=== PATIENT | female | born 1940 | race Caucasian/White ===

== ENCOUNTER 2022-01-01 11:19 | Inpatient (IN) ==
--- NOTE | 2022-01-01 11:56 | Emergency Department Note ---
SOB HPI General Chief Complaint: Shortness of Breath/Dyspnea Stated Complaint: SOB, hypoxia Time Seen by Provider: 01/01/22 11:36 Source: patient and family Mode of arrival: wheelchair Limitations: no limitations History of Present Illness HPI Narrative: Patient is an 81-year-old lady who arrives emergency private vehicle complaining of shortness of breath. History is provided by the patient with some supplement al information from her granddaughter who has accompanied her to the emergency department. The patient has been feeling more short of breath than usual over the past 2 or 3 days. This was gradual in onset and has been progressively worsening. Family members have noticed that her oxygen saturation has been in the low 80s and high 70s on her home 2 L of oxygen via nasal cannula. They were concerned that her increased oxygen requirement so they brought her to the emergency department for further evaluation. She has chronic edema in bilateral lower extremities and this is actually been in she notes that she has not urinated at all today which is unusual for her. She denies any shortness of breath, fever or cough. Related Data Home Medications Medication Instructions Recorded Confirmed omega-3 fatty acids 1,000 mg 1,000 mg PO QDAY cap 05/08/15 01/01/22 capsule timolol 0.25 % eye drops 1 drp OPHTHALMIC BID ml 05/08/15 01/01/22 calcium carbonate 600 mg-vitamin 1 cap PO DAILY cap 10/09/15 01/01/22 D3 10 mcg (400 unit) capsule ibuprofen 200 mg capsule 200 mg PO Q6H cap 12/28/16 01/01/22 latanoprost 0.005 % eye drops 1 drp OPHTHALMIC BID 12/28/16 01/01/22 amlodipine 10 mg tablet (Norvasc) 10 mg PO HS 01/01/22 01/01/22 atorvastatin 40 mg tablet 40 mg PO HS 01/01/22 01/01/22 cephalexin 250 mg capsule 250 mg PO HS 01/01/22 01/01/22 fenofibrate 54 mg tablet 54 mg PO HS 01/01/22 01/01/22 telmisartan 40 mg tablet 40 mg PO HS 01/01/22 01/01/22 Previous Rx's Medication Instructions Recorded gabapentin 100 mg capsule 100 mg PO TID #90 cap 06/09/21 Portable Oxygen #1 ea 11/20/21 furosemide 20 mg tablet 20 mg PO QAM #30 tab 12/12/21 Allergies Allergy/AdvReac Type Severity Reaction Status Date / Time lisinopril AdvReac cough Verified 01/01/22 11:29 Review of Systems ROS ROS Narrative: Narrative: All systems ED: reviewed and negative except as stated. Gastrointestinal: Denies abdominal pain, nausea, vomiting or diarrhea PFSH Narrative Patient History Narrative: Narrative: Medical/Surgical/Family History All Active Problems (Updated 01/01/22 @ 16:44 by Cleveland Dumont DO) Acute hypoxemic respiratory failure (Acute) Congestive heart failure (Acute) Acute hypercapnic respiratory failure (Acute) CHF (congestive heart failure) (Acute) Bladder incontinence (Acute) Hypoxemia requiring supplemental oxygen (Acute) Medicare annual wellness visit, initial (Acute) Glaucoma (Chronic) Geriatric health maintenance (Chronic) Insomnia (Chronic) Hives (Chronic) Encounter for Medicare annual wellness exam (Chronic) Osteopenia (Chronic) Peripheral Vascular Disease (Chronic) Recurrent urinary tract infection (Chronic) Vitamin B12 deficiency (Chronic 06/27/14) Polyneuropathy in other diseases classified elsewhere (Chronic 05/30/14) Localized osteoarthrosis, 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) Osteoarthritis of left knee (Chronic 03/14/15) Muscle ache (Chronic) Benign essential hypertension (Chronic 05/30/14) Hyperlipidemia (Chronic 06/27/14) Leg edema (Chronic) Degenerative disc disease (Chronic 03/14/15) Carpal tunnel syndrome (Chronic 01/14/15) 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 Osteoporosis Pain of lower extremity in left calf, plan to get duplex of arteries, if neg, consider MRI of spine, and x ray hip ok to use ibufrofen, discussed the risk of using [facility] NSAIDS. Peripheral Vascular Disease mild atherosclerosis, no hemodynamically significant lesion on vascular duplex. Polyneuropathy in other diseases classified elsewhere (05/30/14) Positive CHARMAINE (antinuclear antibody) (08/29/14) rest of workup neg, likely false positive Recurrent urinary tract infection On Keflex 250mg daily Renal failure Urinary tract infection 1999 Vitamin B12 deficiency (06/27/14) Surgical History H/O dilation and curettage 1969 H/O: hysterectomy Mid History of bladder surgery Mid Family History Aunt Dementia strong family history, no signs of dementia, educated to use cognitie functions to prevent decline Mother Dementia Malignant neoplasm of uterus Uncle Dementia Son Diabetes mellitus Essential hypertension Acute myocardial infarction Father Malignant neoplasm of lung Social History Smoking Status: Former smoker Alcohol Intake Frequency: holiday/special occasion only Substance Use: does not use Exam Narrative Narrative: I reviewed the vital signs. Gen -patient is awake and alert and in no acute distress. The patient is well groomed. HEENT -head is atraumatic. There is no conjunctival pallor or scleral icterus. Mucous membranes are moist. CV -S1-S2 regular rate and rhythm. Peripheral pulses are palpable. There is no JVD. Resp -breathing is nonlabored at rest on 6 L via nasal cannula of supplemental oxygen. The patient does have some conversational dyspnea with increased work of breathing after prolonged conversation. Lungs have mild rhonchi bilaterally. There is no cyanosis. GI - Abdomen is soft and nontender to palpation. There is no guarding or rebound tenderness. Derm -skin is warm and dry. There is no visible rash. MSK -present extremities are atraumatic. There is mild pitting edema bilateral lower extremities. Psych -patient has appropriate affect. The patient does not appear internally stimulated. Neuro -patient answers questions appropriately with fluent speech. Patient moves all present extremities equally. General Limitations: no limitations Course Vital Signs Vital signs: Vital Signs Temperature 96.3 F L 01/01/22 11:29 Pulse Rate 96 H 01/01/22 11:29 Respiratory Rate 22 01/01/22 11:29 Blood Pressure 99/70 01/01/22 11:29 Pulse Oximetry (%) 60 L 01/01/22 11:29 Temperature 96.3 F L 01/01/22 11:29 Pulse Rate 88 01/01/22 16:30 Respiratory Rate 27 H 01/01/22 16:30 Blood Pressure 95/65 01/01/22 16:16 Pulse Oximetry (%) 98 01/01/22 16:30 MDM MDM Narrative Medical decision making narrative: Patient presents with worsening shortness of breath and hypoxia. She did have some confusion I obtained a blood gas on arrival and she is also retaining significant carbon dioxide in addition to her hypoxia. Chest x-ray reveals findings of pulmonary edema and her BNP is elevated. Unfortunately, she has had tenuous blood pressures in the emergency department so I do not think she would tolerate nitrates. She was given IV diuretics and started on BiPAP and had significant improvement in her symptoms. I discussed the test results with her and her family and she is agreeable with the plan for admission. I discussed the patient's history examination and diagnostic findings with Dr. Keys, who agrees with the plan of care and accepts admission. Critical care time I provided 34 minutes of critical care time. This was in addition to any separately billable procedures. The patient was given supplemental oxygen to treat her hypoxemic respiratory failure. She was started on noninvasive positive pressure ventilation to treat her hypercapnic respiratory failure and given IV diuretics to treat the causative congestive heart failure. The patient was closely monitored for response to treatment and stability of vital signs throughout their emergency department stay. Lab Data Lab results reviewed: Yes I reviewed the patient's lab results. Result diagrams: 01/01/22 12:02 01/01/22 12:02 Labs: Lab Results 01/01/22 01/01/22 01/01/22 Range/Units 12:02 12:02 12:02 WBC 7.1 (4.5-11.0) K/mcL RBC 4.27 (3.59-5.38) M/mcL Hgb 13.6 (11.2-15.7) g/dL Hct 44.0 (34.1-44.9) % MCV 103.0 H (80.0-100.0) fL MCH 31.9 (26.0-34.0) pg MCHC 30.9 L (31.0-36.0) g/dL RDW 13.4 (11.5-14.5) % Plt Count 255 (140-440) K/mcL MPV 9.2 (7.4-10.4) fL Neut % (Auto) 74.3 (38.0-78.0) % Lymph % (Auto) 14.3 L (15.5-49.0) % Duc[place]ne % (Auto) 10.7 (1.0-12.0) % Eos % (Auto) 0.6 (0.0-7.0) % Baso % (Auto) 0.1 (0.0-2.0) % Lymph # (Auto) 1.01 L (1.50-4.80) K/mcL Duc[place]ne # (Auto) 0.76 (0.10-0.90) K/mcL Eos # (Auto) 0.04 (0.00-0.70) K/mcL Baso # (Auto) 0.01 (0.00-0.30) K/mcL Absolute Neutrophils 5.26 (1.80-8.00) K/mcL Sodium 138 (133-145) mmol/L Potassium 4.5 (3.3-5.1) mmol/L Chloride 97 (96-108) mmol/L Carbon Dioxide 31 H (22-30) mmol/L Anion Gap 10.0 (8.0-16.0) BUN 33 H (8-23) mg/dL Creatinine 1.3 H (0.6-1.1) mg/dL GFR Calculation 38 Glucose 102 (70-105) mg/dL Calcium 9.0 (8.6-10.4) mg/dL Total Bilirubin 0.2 (0.1-1.0) mg/dL AST 14 (<32) U/L ALT 14 (<40) U/L Alkaline Phosphatase 37 L (39-117) U/L Troponin T < 0.01 (<0.03) ng/mL NT-Pro-B Natriuret Pep 7929.0 H (<450.0) pg/mL Total Protein 6.3 (5.9-8.4) gm/dL Albumin 3.6 (3.2-5.2) gm/dL Globulin 2.7 (2.2-3.7) gm/dL Albumin/Globulin Ratio 1.3 (1.0-2.3) ED POC Tests ED POC Tests: MALENA - SARS Antigen Negative EKG Data EKG #1: EKG attestation: Yes I reviewed and interpreted this EKG. EKG results narrative: EKG performed at 12:13 PM: Sinus rhythm, rate 91. Normal P wave morphology. Right axis deviation. Normal T wave morphology. No ST segment deviation. Normal ID QRS and QTc duration. No old EKG immediately available for comparison. EKG was interpreted by me. Discharge Plan Patient/Caregiver Discharge Instructions Pt seen by GLUE COOK/PA only: No Clinical Impression: Acute hypoxemic respiratory failure, Congestive heart failure, Acute hypercapnic respiratory failure Patient Disposition: Xfer As Inpt ([facility]) Follow up with: Moni Faulkner DO [Primary Care Provider] - Prescriptions: No Action gabapentin 100 mg capsule 100 mg PO TID Qty: 90 6RF furosemide 20 mg tablet 20 mg PO QAM Qty: 30 3RF omega-3 fatty acids 1,000 mg capsule 1,000 mg PO QDAY 0RF Rx Instructions: administer with food timolol 0.25 % drops 1 drp OPHTHALMIC BID 0RF ibuprofen 200 mg capsule 200 mg PO Q6H 0RF latanoprost 0.005 % drops 1 drp OPHTHALMIC BID 0RF calcium carbonate-vitamin D3 600 mg(1,500mg) -400 unit capsule 1 cap PO DAILY 0RF (DME) Portable Oxygen See Rx Instructions .Route .MEDSUPPLY Qty: 1 0RF Rx Instructions: As directed atorvastatin 40 mg tablet 40 mg PO HS 0RF cephalexin 250 mg capsule 250 mg PO HS 0RF amlodipine [Norvasc] 10 mg tablet 10 mg PO HS 0RF telmisartan 40 mg tablet 40 mg PO HS 0RF fenofibrate 54 mg tablet 54 mg PO HS 0RF
[2022-01-01 12:43] LABS: Basophils # (Auto) 0.01 K/mcL (0.00-0.30); Basophils % (Auto) 0.1 % (0.0-2.0); Eosinophils # (Auto) 0.04 K/mcL (0.00-0.70); Eosinophils % (Auto) 0.6 % (0.0-7.0); Hemoglobin 13.6 g/dL (11.2-15.7); Lymphocytes # (Auto) 1.01 K/mcL (1.50-4.80); Lymphocytes % (Auto) 14.3 % (15.5-49.0); Mean Corpuscular HGB Conc 30.9 g/dL (31.0-36.0); Mean Platelet Volume 9.2 fL (7.4-10.4); Monocytes # (Auto) 0.76 K/mcL (0.10-0.90); Monocytes % (Auto) 10.7 % (1.0-12.0); Neutrophils % (Auto) 74.3 % (38.0-78.0); Platelet Count 255 K/mcL (140-440); RBC 4.27 M/mcL (3.59-5.38); Red Cell Distribution Width 13.4 % (11.5-14.5); WBC 7.1 K/mcL (4.5-11.0)
--- NOTE | 2022-01-01 12:54 | XRay Report ---
INDICATION: dyspnea TECHNIQUE: PA and lateral upright chest x-ray COMPARISON: None FINDINGS: There is cardiomegaly. Vascularity is prominent consistent with pulmonary congestion.. There is peribronchial thickening which may indicate mild interstitial pulmonary edema. No focal pulmonary parenchymal consolidation. There is no significant pleural effusion. IMPRESSION: 1. Cardiomegaly and pulmonary congestion 2. Probable mild interstitial pulmonary edema Interpreted and Authenticated by: King Swanson 01/01/22
[2022-01-01 13:20] LABS: ALT/SGPT 14 U/L (<40); AST/SGOT 14 U/L (<32); Albumin 3.6 gm/dL (3.2-5.2); Albumin/Globulin Ratio 1.3 (1.0-2.3); Alkaline Phosphatase 37 U/L (39-117); Bilirubin,Total 0.2 mg/dL (0.1-1.0); Blood Urea Nitrogen 33 mg/dL (8-23); Carbon Dioxide 31 mmol/L (22-30); Chloride 97 mmol/L (96-108); Globulin 2.7 gm/dL (2.2-3.7); Glomerular Filtration Rate 38; Glucose 102 mg/dL (70-105)
[2022-01-01] MEDS ORDERED: FUROSEMIDE 40 MG/4 ML VIAL IV ONE (13:57)
--- NOTE | 2022-01-01 16:12 | EKG ---
[facility] Test Date: 2022-01-01 Pat Name: Amarilis Merrill Department: ED Room: Gender: Female Paving Bed Maker: LR : 1940 Requested By: Cleveland Dumont Order Number: [id number] Reading MD: Akira Dominguez Measurements Intervals [place] Rate: 91 P: 95 UT: 147 QRS: 108 QRSD: 91 T: 1 QT: 348 QTc: 429 Interpretive Statements Sinus rhythm Right axis deviation Electronically Signed On 01-01-2022 16:11:58 PST by Akira Dominguez /store/[email or web address]/[id number]
--- NOTE | 2022-01-01 17:08 | Internal Med History&Physical ---
HPI History of Present Illness Patient information: Note initiated : 01/01/22 at 4:40 pm Service Date, if different from initiated Date: [] Patient: Amarilis Medellin 81 y/o F admitted on for SOB, hypoxia. Chief Complaint: [] History of present illness: Ms. Miranda Merrill is a 81 year old female with a history of hypertension, hyperlipidemia, recurrent UTIs on suppressive cephalexin, macular degeneration, chronic hypoxia on home oxygen 2 L/min recently diagnosed heart failure with preserved ejection fraction who presented to the emergency department for a chief complaint of shortness of breath and worsening hypoxia. She says that she was diagnosed with congestive heart failure in the last couple months and started on oral Lasix. Since that time she has been struggling with shortness of breath, especially while lying flat. In the ED, the patient was found to be severely hypoxic. ABG was done and in addition to hypoxemia showed a pH of 7.28 and PCO2 of 77 consistent with respiratory acidosis. ABG bicarbonate level was 36.2. This suggests a chronic respiratory acidosis. The patient does not have a known history of obstructive lung disease. Chest x-ray was consistent with pulmonary vascular congestion. Routine lab work with CBC, CMP, cardiac enzymes was most impressive for a NT proBNP of almost 8000. Troponin was normal. EKG did not show any acute ischemic changes. Creatinine was 1.3, up from the patient's baseline of about 0.8. The patient was started on BiPAP with supplemental oxygen and given a dose of Lasix 40 mg IV. Hospital medicine was consulted for admission. Review of the recent transthoracic echocardiogram reveals an estimated LVEF of 70%, a moderately dilated right ventricle with mildly reduced right ventricular systolic function. Pulmonary artery pressure estimation was not possible. Additionally, there was comment of a hematoma/mass seen in the pericardial space adjacent to the right atrium and right ventricle as well as a small to moderate pericardial effusion. When I evaluated the arun singh in the ED, she was on BiPAP and appeared to be breathing comfortably. We discussed the plan of care and her goals of care. The patient wishes to be DNR/DNI. Review of systems Constitutional: no fever, fatigue, or weight loss Eyes: no vision changes or pain Cardiovascular: Positive for intermittent pressure-like chest pain, no palpitations Respiratory: Positive for dyspnea, positive for orthopnea. Gastrointestinal: no abdominal pain, no nausea, vomiting, or diarrhea Genitourinary: Positive for recurrent urinary tract infections and urinary incontinence, no dysuria. Musculoskeletal: no arthralgia or myalgia Integumentary: no skin lesion or wound Neurological: no focal weakness or numbness Psychiatric: no anxiety or depression Physical exam Head: Atraumatic, normal inspection. Eyes: normal appearance, no scleral icterus. Neck: full ROM Respiratory: On BiPAP with supplemental oxygen, respiratory rate in the mid 20s. Cardiovascular: normal rate and rhythm, S1, S2. GI/Abdominal: Obesely distended, soft, nontender, no guarding. : Carbajal catheter present. Extremities: full range of motion, nontender. Neurological: CN II-XII intact, intact motor, intact sensation. Psychiatric: normal mood. Skin: warm, normal color PFSH PFSH All Active Problems (Updated 01/01/22 @ 16:44 by Cleveland Dumont DO) Acute hypoxemic respiratory failure (Acute) Congestive heart failure (Acute) Acute hypercapnic respiratory failure (Acute) CHF (congestive heart failure) (Acute) Bladder incontinence (Acute) Hypoxemia requiring supplemental oxygen (Acute) Medicare annual wellness visit, initial (Acute) Glaucoma (Chronic) Geriatric health maintenance (Chronic) Insomnia (Chronic) Hives (Chronic) Encounter for Medicare annual wellness exam (Chronic) Osteopenia (Chronic) Peripheral Vascular Disease (Chronic) Recurrent urinary tract infection (Chronic) Vitamin B12 deficiency (Chronic 06/27/14) Polyneuropathy in other diseases classified elsewhere (Chronic 05/30/14) Localized osteoarthrosis, 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) Osteoarthritis of left knee (Chronic 03/14/15) Muscle ache (Chronic) Benign essential hypertension (Chronic 05/30/14) Hyperlipidemia (Chronic 06/27/14) Leg edema (Chronic) Degenerative disc disease (Chronic 03/14/15) Carpal tunnel syndrome (Chronic 01/14/15) 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 Osteoporosis Pain of lower extremity in left calf, plan to get duplex of arteries, if neg, consider MRI of spine, and x ray hip ok to use ibufrofen, discussed the risk of using [facility] NSAIDS. Peripheral Vascular Disease mild atherosclerosis, no hemodynamically significant lesion on vascular duplex. Polyneuropathy in other diseases classified elsewhere (05/30/14) Positive CHARMAINE (antinuclear antibody) (08/29/14) rest of workup neg, likely false positive Recurrent urinary tract infection On Keflex 250mg daily Renal failure Urinary tract infection 1999 Vitamin B12 deficiency (06/27/14) Surgical History H/O dilation and curettage 1969 H/O: hysterectomy Mid History of bladder surgery Mid Family History Aunt Dementia strong family history, no signs of dementia, educated to use cognitie functions to prevent decline Mother Dementia Malignant neoplasm of uterus Uncle Dementia Son Diabetes mellitus Essential hypertension Acute myocardial infarction Father Malignant neoplasm of lung Social History marital status: single smoking status: Never smoker alcohol intake frequency: holiday/special occasion only substance use type: does not use MEDS/ALLERGIES Home Medications and Allergies Home Medications Medication Instructions Recorded Confirmed Type omega-3 fatty acids 1,000 mg 1,000 mg PO QDAY cap 05/08/15 01/01/22 History capsule timolol 0.25 % eye drops 1 drp OPHTHALMIC BID ml 05/08/15 01/01/22 History calcium carbonate 600 mg-vitamin 1 cap PO DAILY cap 10/09/15 01/01/22 History D3 10 mcg (400 unit) capsule ibuprofen 200 mg capsule 200 mg PO Q6H cap 12/28/16 01/01/22 History latanoprost 0.005 % eye drops 1 drp OPHTHALMIC BID 12/28/16 01/01/22 History gabapentin 100 mg capsule 100 mg PO TID #90 cap 06/09/21 01/01/22 Rx Portable Oxygen #1 ea 11/20/21 12/17/21 Rx furosemide 20 mg tablet 20 mg PO QAM #30 tab 12/12/21 01/01/22 Rx amlodipine 10 mg tablet (Norvasc) 10 mg PO HS 01/01/22 01/01/22 History atorvastatin 40 mg tablet 40 mg PO HS 01/01/22 01/01/22 History cephalexin 250 mg capsule 250 mg PO HS 01/01/22 01/01/22 History fenofibrate 54 mg tablet 54 mg PO HS 01/01/22 01/01/22 History telmisartan 40 mg tablet 40 mg PO HS 01/01/22 01/01/22 History Allergies Allergy/AdvReac Type Severity Reaction Status Date / Time lisinopril AdvReac cough Verified 01/01/22 11:29 EXAM Constitutional Vitals: Temp Pulse Resp BP Pulse Ox 96.3 F L 88 27 H 95/65 98 01/01/22 11:29 01/01/22 16:30 01/01/22 16:30 01/01/22 16:16 01/01/22 16:30 DATA Data Completed and Pending Labs: Labs from last 24 hours 01/01/22 01/01/22 01/01/22 12:02 12:02 12:02 WBC 7.1 RBC 4.27 Hgb 13.6 Hct 44.0 MCV 103.0 H MCH 31.9 MCHC 30.9 L RDW 13.4 Plt Count 255 MPV 9.2 Neut % (Auto) 74.3 Lymph % (Auto) 14.3 L Stephenson % (Auto) 10.7 Eos % (Auto) 0.6 Baso % (Auto) 0.1 Lymph # (Auto) 1.01 L Stephen[place] # (Auto) 0.76 Eos # (Auto) 0.04 Baso # (Auto) 0.01 Absolute Neutrophils 5.26 Sodium 138 Potassium 4.5 Chloride 97 Carbon Dioxide 31 H Anion Gap 10.0 BUN 33 H Creatinine 1.3 H GFR Calculation 38 Glucose 102 Calcium 9.0 Total Bilirubin 0.2 AST 14 ALT 14 Alkaline Phosphatase 37 L Troponin T < 0.01 NT-Pro-B Natriuret Pep 7929.0 H Total Protein 6.3 Albumin 3.6 Globulin 2.7 Albumin/Globulin Ratio 1.3 A/P Narrative A/P Narrative: Assessment: 81 year old female with a history of hypertension, hyperlipidemia, recurrent UTIs on suppressive cephalexin, macular degeneration, obesity, chronic hypoxia on home oxygen 2 L/min recently diagnosed heart failure with preserved ejection fraction who presented to the emergency department for a chief complaint of shortness of breath and worsening hypoxia. In the ED, the patient appeared to be in at least mild acute on chronic congestive heart failure ho wever does not appear floridly edematous after receiving one dose of IV lasix . Additionally, the patient was found to have respiratory acidosis, I suspect the patient has chronic hypercapnia probably secondary to obesity hypoventilation syndrome and this is acute on chronic hypercapnia. The patient's symptoms are likely multifactorial secondary to exacerbation of heart failure with preserved ejection fraction and probably worsening of chronic hypercapnia resulting in dyspnea. The patient is also at risk of having pulmonary hypertension given the dilated right ventricle and reduced function however estimated pulmonary artery pressure was not possible with the last echocardiogram. #Acute on chronic hypoxic respiratory failure #Hypercapnic respiratory failure -Suspect acute on chronic. #Acute on chronic diastolic heart failure #Reduced right ventricular systolic function #Possible pulmonary hypertension #Probable obesity hypoventilation syndrome #Acute kidney injury #Essential hypertension #Hyperlipidemia #Recurrent UTIs on suppressive cephalexin #History of vitamin B12 deficiency/macrocytosis #Hematoma/mass adjacent to right atrium and right ventricle #Suspected sleep apnea #Obesity BMI 40 Plan -Received Lasix 40 mg IV in the ED, monitor urine output and renal function, consider further IV diuresis tomorrow before transitioning to oral diuretic. -Oxygen supplementation. -BiPAP for now, follow acid-base status with VBG. -D-dimer to rule out possible VTE in the setting of reduced RV function. -Home medication reconciliation. -Carbajal catheter for accurate urine output, remove when able. -Limited TTE to evaluate for interval change, estimation of pulmonary artery pressure, and reevaluate pericardial hematoma/mass. -PT consult. -DVT prophylaxis: Heparin SQ -CODE STATUS: DNR/DNI -Disposition: Probably home when stable. Recommend outpatient PFT including with [facility]. Time Spent With Patient Time: Total time spent is greater than 50% in coordination of care (as documented) at patient's floor/unit and/or counseling patient:
[2022-01-01] MEDS ORDERED: ONDANSETRON 4 MG/2 ML VIAL IV PRN (18:53)
[2022-01-01] MEDS ORDERED: LACTULOSE 20 GM/30 ML ORAL.SOL PO PRN (18:53)
[2022-01-01] MEDS ORDERED: SENNOSIDES 1 TABLET PO PRN (18:53)
[2022-01-01 19:25] LABS: ABG Methemoglobin 0.3 % (0.4-1.5); Total Hemoglobin 13.8 gm/Dl (12.0-15.0); VBG Base Excess 6 (-2-3); VBG HCO3 31.2 mmol/L (24.0-28.0); VBG Oxygen Saturation 87.4 % (40.0-70.0); VBG PCO2 46.4 mmHg (41.0-51.0); VBG PH 7.45 U (7.32-7.42); VBG PO2 92.1 mmHg (25.0-40.0); VBG Total CO2 32.6 mmol/L (25.0-29.0)
[2022-01-01 19:55] LABS: ALT/SGPT 12 U/L (<40); AST/SGOT 19 U/L (<32); Albumin 3.5 gm/dL (3.2-5.2); Albumin/Globulin Ratio 1.2 (1.0-2.3); Alkaline Phosphatase 36 U/L (39-117); Bilirubin,Direct < 0.2 mg/dL (0-0.3); Bilirubin,Total 0.2 mg/dL (0.1-1.0); Blood Urea Nitrogen 34 mg/dL (8-23); Calcium 9.1 mg/dL (8.6-10.4); Carbon Dioxide 24 mmol/L (22-30); Chloride 97 mmol/L (96-108); Glomerular Filtration Rate 42; Glucose 88 mg/dL (70-105); Lactate Dehydrogenase 315 U/L (135-225); Phosphorous 4.5 mg/dL (2.5-4.5); Triglycerides 127 mg/dL (<150); Uric Acid 6.8 mg/dL (2.5-8.0)
[2022-01-01] MEDS: HEPARIN 5,000 UNIT/ML VIAL SQ SCH (21:42)
[2022-01-01] MEDS: DOCUSATE SODIUM 100 MG CAPSULE PO SCH (21:43)
[2022-01-01] MEDS: 0.9 % SODIUM CHLORIDE 10 ML SYRINGE IV SCH (21:45)
[2022-01-02] MEDS: 0.9 % SODIUM CHLORIDE 10 ML SYRINGE IV SCH ×3 (05:35→21:10)
[2022-01-02 07:27] LABS: Hematocrit 41.3 % (34.1-44.9); Mean Corpuscular HGB Conc 31.5 g/dL (31.0-36.0); Mean Platelet Volume 9.6 fL (7.4-10.4); Platelet Count 221 K/mcL (140-440); RBC 4.05 M/mcL (3.59-5.38); Red Cell Distribution Width 13.2 % (11.5-14.5); WBC 6.1 K/mcL (4.5-11.0)
[2022-01-02 08:02] LABS: Iron 44 ug/dL (37-145); TIBC Calculation 249 ug/dl (228-428); Transferrin % Saturation 18 % (15-50)
[2022-01-02 08:09] LABS: ALT/SGPT 10 U/L (<40); AST/SGOT 13 U/L (<32); Albumin 3.2 gm/dL (3.2-5.2); Albumin/Globulin Ratio 1.2 (1.0-2.3); Alkaline Phosphatase 34 U/L (39-117); Bilirubin,Direct < 0.2 mg/dL (0-0.3); Bilirubin,Total 0.3 mg/dL (0.1-1.0); Blood Urea Nitrogen 33 mg/dL (8-23); Calcium 8.4 mg/dL (8.6-10.4); Carbon Dioxide 31 mmol/L (22-30); Chloride 99 mmol/L (96-108); Globulin 2.7 gm/dL (2.2-3.7); Glomerular Filtration Rate 47; Glucose 85 mg/dL (70-105); Lactate Dehydrogenase 199 U/L (135-225); Triglycerides 151 mg/dL (<150); Uric Acid 7.5 mg/dL (2.5-8.0)
[2022-01-02 08:11] LABS: Ferritin 71.7 ng/mL (30.0-400.0)
[2022-01-02] MEDS: ACETAMINOPHEN 325 MG TABLET PO PRN (09:30)
[2022-01-02 09:52] LABS: Band Neutrophils % 1 % (0-10); Eosinophils % (Manual) 2 % (0-7); Lymphocytes % 20 % (15-49); Macrocytosis 1+ (None Seen); Monocytes % (Manual) 10 % (1-12); Platelet Estimate NORMAL (Normal); RBC Morphology ABNORMAL (Normal); Segmented Neutrophils % 67 % (38-78)
[2022-01-02] MEDS: HEPARIN 5,000 UNIT/ML VIAL SQ SCH ×2 (11:14→21:09)
[2022-01-02] MEDS: DOCUSATE SODIUM 100 MG CAPSULE PO SCH ×2 (11:14→21:08)
[2022-01-02] MEDS ORDERED: FUROSEMIDE 40 MG/4 ML VIAL IV SCH ×2 (11:50→13:15)
[2022-01-02] MEDS: HYDROcodone/APAP 5/325MG TABLET PO PRN ×2 (12:14→16:24)
--- NOTE | 2022-01-02 16:07 | Internal Med Progress Note ---
SUBJECTIVE Subjective Patient information: Note initiated : 01/02/22 at 4:06 pm Service Date, if different from initiated Date: [] Patient: Amarilis Medellin 81 y/o F admitted on 01/01/22 for SOB, hypoxia. Chief Complaint: [] Interval history: Ms. Miranda Merrill is a 81 year old female with a history of hypertension, hyperlipidemia, recurrent UTIs on suppressive cephalexin, macular degeneration, chronic hypoxia on home oxygen 2 L/min recently diagnosed heart failure with preserved ejection fraction who presented to the emergency department for a chief complaint of shortness of breath and worsening hypoxia. She says that she was diagnosed with congestive heart failure in the last couple months and started on oral Lasix. Since that time she has been struggling with shortness of breath, especially while lying flat. In the ED, the patient was found to be severely hypoxic. ABG was done and in addition to hypoxemia showed a pH of 7.28 and PCO2 of 77 consistent with respiratory acidosis. ABG bicarbonate level was 36.2. This suggests a chronic respiratory acidosis. The patient does not have a known history of obstructive lung disease. Chest x-ray was consistent with pulmonary vascular congestion. Routine lab work with CBC, CMP, cardiac enzymes was most impressive for a NT proBNP of almost 8000. Troponin was normal. EKG did not show any acute ischemic changes. Creatinine was 1.3, up from the patient's baseline of about 0.8. The patient was started on BiPAP with supplemental oxygen and given a dose of Lasix 40 mg IV. Hospital medicine was consulted for admission. Review of the recent transthoracic echocardiogram rev eals an estimated LVEF of 70%, a moderately dilated right ventricle with mildly reduced right ventricular systolic function. Pulmonary artery pressure estimation was not possible. Additionally, there was comment of a hematoma/mass seen in the pericardial space adjacent to the right atrium and right ventricle as well as a small to moderate pericardial effusion. When I evaluated the patient in the ED, she was on BiPAP and appeared to be breathing comfortably. We discussed the plan of care and her goals of care. The patient wishes to be DNR/DNI. 01/02 Renal function improved, continues on BiPAP, started lasix 40 mg IV BID. Goals of care discussion with son at bedside, goal is to get the patient stable enough to go home and consider hospice at home. D-dimer mildly elevated, discussed CTA chest with the patient, she declined further evaluation for pulmonary embolism. ECHO report pending. Vitamin B12 level 246, started vitamin B12 IM supplement. Physical exam Head: Atraumatic, normal inspection. Eyes: normal appearance, no scleral icterus. Neck: full ROM Respiratory: On BiPAP with supplemental oxygen, respiratory rate in the mid teens. Cardiovascular: normal rate and rhythm, S1, S2. GI/Abdominal: Obesely distended, soft, nontender, no guarding. : Carbajal catheter present. Extremities: full range of motion, nontender. Neurological: CN II-XII intact, intact motor, intact sensation. Psychiatric: normal mood. Skin: warm, normal color Constitutional Vitals: Vital Signs Temp Pulse Resp BP Pulse Ox 98 F 76 20 118/77 91 01/02/22 12:01 01/02/22 15:33 01/02/22 15:33 01/02/22 14:01 01/02/22 15:33 Period Temp Pulse Resp BP Sys/Camara Pulse Ox Last 24 Hr 97.3 F-98 F 73-96 12-29 95-148/57-93 89-100 Intake and Output 01/02/22 01/02/22 01/02/22 05:59 13:59 21:59 Intake Total 400 480 Output Total 700 205 Balance -300 275 Intake & Output: Intake & Output 01/02/22 01/02/22 01/02/22 05:59 13:59 21:59 Intake Total 400 480 Output Total 700 205 Balance -300 275 Intake: Oral 400 480 Output: Urine Catheter Amount 700 205 Other: Urine Appearance Clear Clear Uretheral (Carbajal) Clear Urine Color Bright Yellow Bright Yellow Uretheral (Carbajal) Bright Yellow OBJ DATA Labs CBC & Chem 7: 01/02/22 05:10 01/02/22 05:10 Labs: Abnormal Lab Results 01/02/22 01/02/22 01/01/22 05:10 05:10 19:02 MCV 102.0 H MCHC Lymph % (Auto) Lymph # (Auto) RBC Morphology Abnormal A Macrocytosis 1+ A D-Dimer ABG Methemoglobin 0.3 L VBG pH 7.45 H VBG pO2 92.1 H VBG HCO3 31.2 H VBG Total CO2 32.6 H VBG O2 Saturation 87.4 H VBG Base Excess 6 H Carboxyhemoglobin 9.8 H Carbon Dioxide 31 H BUN 33 H Creatinine Calcium 8.4 L Magnesium GGT 4 L Alkaline Phosphatase 34 L Lactate Dehydrogenase NT-Pro-B Natriuret Pep Triglycerides 151 H 01/01/22 01/01/22 01/01/22 19:02 12:02 12:02 MCV MCHC Lymph % (Auto) Lymph # (Auto) RBC Morphology Macrocytosis D-Dimer 1.07 H ABG Methemoglobin VBG pH VBG pO2 VBG HCO3 VBG Total CO2 VBG O2 Saturation VBG Base Excess Carboxyhemoglobin Carbon Dioxide 31 H BUN 34 H 33 H Creatinine 1.2 H 1.3 H Calcium Magnesium 2.7 H GGT Alkaline Phosphatase 36 L 37 L Lactate Dehydrogenase 315 H NT-Pro-B Natriuret Pep 7929.0 H Triglycerides 01/01/22 12:02 MCV 103.0 H MCHC 30.9 L Lymph % (Auto) 14.3 L Lymph # (Auto) 1.01 L RBC Morphology Macrocytosis D-Dimer ABG Methemoglobin VBG pH VBG pO2 VBG HCO3 VBG Total CO2 VBG O2 Saturation VBG Base Excess Carboxyhemoglobin Carbon Dioxide BUN Creatinine Calcium Magnesium GGT Alkaline Phosphatase Lactate Dehydrogenase NT-Pro-B Natriuret Pep Triglycerides Meds: Medications Acetaminophen (Acetaminophen 325 Mg Tablet) 650 mg PO Q6HP PRN; Protocol PRN Reason: Per Pain Protocol/Fever > 101 Last Admin: 01/02/22 09:30 Dose: 650 mg Documented by: Hydrocodone Bitart/Acetaminophen (Hydrocodone/Apap 5/325mg Tablet) 1 tab PO Q4HP PRN; Protocol PRN Reason: Per Pain Protocol Last Admin: 01/02/22 12:14 Dose: 1 tab Documented by: Docusate Sodium (Docusate Sodium 100 Mg Capsule) 100 mg PO BID [facility] Last Admin: 01/02/22 11:14 Dose: 100 mg Documented by: Furosemide (Furosemide 40 Mg/4 Ml Vial) 40 mg IV BID [facility] Heparin Sodium (Porcine) (Heparin 5,000 Unit/Ml Vial) 5,000 unit SQ Q12 [facility] Last Admin: 01/02/22 11:14 Dose: 5,000 unit Documented by: Lactulose (Lactulose 20 Gm/30 Ml Oral.Kym) 10 gm PO DAILYP PRN PRN Reason: Constipation Ondansetron HCl (Ondansetron 4 Mg/2 Ml Vial) 4 mg IV Q4HP PRN; Protocol PRN Reason: Nausea And Vomiting Senna (Sennosides 1 Tablet) 2 tab PO HSP PRN PRN Reason: Constipation Sodium Chloride (0.9 % Sodium Chloride 10 Ml Syringe) 10 ml IV Q8 [facility] Last Admin: 01/02/22 14:13 Dose: 10 ml Documented by: ABG Interpretation ABG results: 01/01/22 19:02 ABG Methemoglobin 0.3 L VBG pH 7.45 H VBG pCO2 46.4 VBG pO2 92.1 H VBG HCO3 31.2 H VBG Total CO2 32.6 H VBG O2 Saturation 87.4 H VBG Base Excess 6 H A/P Narrative A/P Narrative: Assessment: 81 year old female with a history of hypertension, hyperlipidemia, recurrent UTIs on suppressive cephalexin, macular degeneration, obesity, chronic hypoxia on home oxygen 2 L/min recently diagnosed heart failure with preserved ejection fraction who presented to the emergency department for a chief complaint of shortness of breath and worsening hypoxia. In the ED, the patient appeared to be in at least mild acute on chronic congestive heart failure however does not appear floridly edematous after receiving one dose of IV lasix . Additionally, the patient was found to have respiratory acidosis, I suspect the patient has chronic hypercapnia probably secondary to obesity h ypoventilation syndrome and this is acute on chronic hypercapnia. The patient's symptoms are likely multifactorial secondary to exacerbation of heart failure with preserved ejection fraction and probably worsening of chronic hypercapnia resulting in dyspnea. The patient is also at risk of having pulmonary hypertension given the dilated right ventricle and reduced function however estimated pulmonary artery pressure was not possible with the last echocardiogram. #Acute on chronic hypoxic respiratory failure #Hypercapnic respiratory failure -Suspect acute on chronic. #Acute on chronic diastolic heart failure #Reduced right ventricular systolic function #Possible pulmonary hypertension #Probable obesity hypoventilation syndrome #Resolving acute kidney injury #Essential hypertension #Hyperlipidemia #Recurrent UTIs on suppressive cephalexin #History of vitamin B12 deficiency/macrocytosis #Hematoma/mass adjacent to right atrium and right ventricle #Suspected sleep apnea #Obesity BMI 40 Plan -Lasix 40 mg IV BID, monitor urine output and renal function. -Oxygen supplementation. -BiPAP as needed. -Essential home medications. -Carbajal catheter for accurate urine output, remove when able. -Follow TTE report. -PT consult. -DVT prophylaxis: Heparin SQ -CODE STATUS: DNR/DNI -Disposition: Probably home when stable, likely on a higher diuretic dose. The patient is considering hospice at home. Recommend outpatient PFT including with DLCO if within goals of care. Time Spent With Patient Time: Total time spent is greater than 50% in coordination of care (as documented) at patient's floor/unit and/or counseling patient:
[2022-01-02] MEDS: CYANOCOBALAMIN 1,000 MCG/ML VIAL IM SCH (17:36)
[2022-01-02] MEDS: FENOFIBRATE 43 MG CAPSULE PO SCH (21:08)
[2022-01-02] MEDS: GABAPENTIN 100 MG CAPSULE PO SCH (21:08)
[2022-01-02] MEDS: TIMOLOL 0.25% OPHTH DROPS BOTTLE 5ML OU SCH (21:08)
[2022-01-02] MEDS: CEPHALEXIN 250 MG CAPSULE PO SCH (21:08)
[2022-01-02] MEDS: ATORVASTATIN 40 MG TABLET PO SCH (21:09)
[2022-01-02] MEDS: FUROSEMIDE 40 MG/4 ML VIAL IV SCH (21:09)
[2022-01-02] MEDS: LATANOPROST OPHTH DROPS 2.5ML BOTTLE OU SCH (21:09)
[2022-01-03] MEDS: 0.9 % SODIUM CHLORIDE 10 ML SYRINGE IV SCH ×3 (04:46→20:57)
[2022-01-03 07:08] LABS: Hemoglobin 13.1 g/dL (11.2-15.7); Mean Cell Volume 99.5 fL (80.0-100.0); Mean Platelet Volume 9.6 fL (7.4-10.4); Platelet Count 226 K/mcL (140-440); RBC 4.12 M/mcL (3.59-5.38); Red Cell Distribution Width 13.2 % (11.5-14.5); WBC 6.1 K/mcL (4.5-11.0)
[2022-01-03 07:36] LABS: ALT/SGPT 10 U/L (<40); AST/SGOT 13 U/L (<32); Albumin 3.1 gm/dL (3.2-5.2); Albumin/Globulin Ratio 1.1 (1.0-2.3); Alkaline Phosphatase 34 U/L (39-117); Bilirubin,Direct < 0.2 mg/dL (0-0.3); Bilirubin,Total 0.4 mg/dL (0.1-1.0); Blood Urea Nitrogen 32 mg/dL (8-23); Calcium 8.5 mg/dL (8.6-10.4); Carbon Dioxide 32 mmol/L (22-30); Chloride 96 mmol/L (96-108); Globulin 2.8 gm/dL (2.2-3.7); Glomerular Filtration Rate 52; Glucose 80 mg/dL (70-105); Lactate Dehydrogenase 207 U/L (135-225); Phosphorous 3.7 mg/dL (2.5-4.5); Triglycerides 161 mg/dL (<150); Uric Acid 7.5 mg/dL (2.5-8.0)
[2022-01-03 08:22] LABS: Eosinophils % (Manual) 1 % (0-7); Lymphocytes % 18 % (15-49); Monocytes % (Manual) 9 % (1-12); Platelet Estimate NORMAL (Normal); RBC Morphology NORMAL (Normal); Segmented Neutrophils % 72 % (38-78)
[2022-01-03] MEDS: TIMOLOL 0.25% OPHTH DROPS BOTTLE 5ML OU SCH ×2 (09:04→20:56)
[2022-01-03] MEDS: DOCUSATE SODIUM 100 MG CAPSULE PO SCH ×2 (09:07→20:44)
[2022-01-03] MEDS: CALCIUM W/VIT D3 500 MG TABLET PO SCH (09:07)
[2022-01-03] MEDS: HEPARIN 5,000 UNIT/ML VIAL SQ SCH (09:07)
[2022-01-03] MEDS: FUROSEMIDE 40 MG/4 ML VIAL IV SCH (09:07)
[2022-01-03] MEDS: GABAPENTIN 100 MG CAPSULE PO SCH ×3 (09:08→20:44)
[2022-01-03] MEDS: CYANOCOBALAMIN 1,000 MCG/ML VIAL IM SCH (09:08)
[2022-01-03] MEDS: LATANOPROST OPHTH DROPS 2.5ML BOTTLE OU SCH ×2 (09:08→20:45)
[2022-01-03] MEDS: HYDROcodone/APAP 5/325MG TABLET PO PRN (09:09)
[2022-01-03] MEDS ORDERED: ALBUTEROL SULFATE 2.5 MG/3 ML NEBULIZER NEB PRN (10:14)
[2022-01-03 10:37] LABS: ABG Methemoglobin 0.3 % (0.4-1.5); Total Hemoglobin 12.8 gm/Dl (12.0-15.0); VBG Base Excess 7 (-2-3); VBG HCO3 33.8 mmol/L (24.0-28.0); VBG Oxygen Saturation 92.6 % (40.0-70.0); VBG PCO2 56.1 mmHg (41.0-51.0); VBG PO2 156.2 mmHg (25.0-40.0); VBG Total CO2 35.5 mmol/L (25.0-29.0)
[2022-01-03] MEDS ORDERED: IOPAMIDOL 100 ML BOTTLE IV ONE (11:15)
--- NOTE | 2022-01-03 11:32 | Cat Scan Report ---
INDICATION: Hypoxia, evaluate for PE. COMPARISON: Chest x-ray dated 01/01/2022 TECHNIQUE: Axial images obtained through the chest. 80ml Isovue 370 injected intravenously, and scanning was performed during pulmonary arterial phase. Sagittally and coronally reformatted images were obtained. MIP reformatted images. FINDINGS: Lungs:Mild parenchymal density of both lung bases consistent with dependent atelectasis. There is no parenchymal consolidation. No pulmonary parenchymal mass Mediastinum, vascular:Main pulmonary artery, right pulmonary artery, left pulmonary artery are negative. There is clot within the lingular segmental pulmonary artery. There is clot within the left lower lobe anterior basilar segmental artery, posterior basilar segmental artery, and medial basilar segmental artery. There is bilateral material within the right lower lobe pulmonary artery, right upper lobe pulmonary artery, right middle lobe pulmonary artery. There is essentially occlusive clot in the right posterior and medial basilar lower lobe segmental arteries. No definite evidence for pulmonary infarction. Heart:There is cardiomegaly. There is reflux of contrast material into the inferior vena cava consistent with right heart strain. There is a small pericardial effusion. There is coronary artery calcification with extensive atherosclerotic disease in the left anterior descending coronary artery Pleura:There are small right pleural effusion Axilla, supraclavicular regions, chest wall:There is a 2.5 cm round mass in the right breast. Mammographic evaluation and ultrasound are recommended. Musculoskeletal:Multilevel degenerative disc disease. No thoracic compression fractures Upper Abdomen:Negative IMPRESSION: 1. Moderate pulmonary embolism 2. Mild reflux of contrast material into the inferior vena cava consistent with right heart strain 3. Atherosclerotic coronary artery disease with extensive calcification in the left anterior descending coronary artery 4. 2.5 cm right breast mass. Recommend mammography and ultrasound 5. Multilevel degenerative disc disease 6. Probable bilateral dependent atelectasis. Very small right effusion The exam was performed using radiation dose optimization techniques including, but not limited to, automated exposure control, adjustment of the mA and/or kV according to patient size and use of iterative reconstruction technique. Interpreted and Authenticated by: King Swanson 01/03/22
[2022-01-03] MEDS: IPRATROPIUM/ALBUTEROL 3 ML AMPUL.NEB NEB SCH ×2 (11:46→19:05)
--- NOTE | 2022-01-03 13:13 | Internal Med Progress Note ---
SUBJECTIVE Subjective Patient information: Note initiated : 01/03/22 at 1:12 pm Service Date, if different from initiated Date: [] Patient: Amarilis Medellin 81 y/o F admitted on 01/01/22 for SOB, hypoxia. Chief Complaint: [] Interval history: Ms. Miranda Merrill is a 81 year old female with a history of hypertension, hyperlipidemia, recurrent UTIs on suppressive cephalexin, macular degeneration, chronic hypoxia on home oxygen 2 L/min recently diagnosed heart failure with preserved ejection fraction who presented to the emergency department for a chief complaint of shortness of breath and worsening hypoxia. She says that she was diagnosed with congestive heart failure in the last couple months and started on oral Lasix. Since that time she has been struggling with shortness of breath, especially while lying flat. In the ED, the patient was found to be severely hypoxic. ABG was done and in addition to hypoxemia showed a pH of 7.28 and PCO2 of 77 consistent with respiratory acidosis. ABG bicarbonate level was 36.2. This suggests a chronic respiratory acidosis. The patient does not have a known history of obstructive lung disease. Chest x-ray was consistent with pulmonary vascular congestion. Routine lab work with CBC, CMP, cardiac enzymes was most impressive for a NT proBNP of almost 8000. Troponin was normal. EKG did not show any acute ischemic changes. Creatinine was 1.3, up from the patient's baseline of about 0.8. The patient was started on BiPAP with supplemental oxygen and given a dose of Lasix 40 mg IV. Hospital medicine was consulted for admission. Review of the recent transthoracic echocardiogram rev eals an estimated LVEF of 70%, a moderately dilated right ventricle with mildly reduced right ventricular systolic function. Pulmonary artery pressure estimation was not possible. Additionally, there was comment of a hematoma/mass seen in the pericardial space adjacent to the right atrium and right ventricle as well as a small to moderate pericardial effusion. When I evaluated the patient in the ED, she was on BiPAP and appeared to be breathing comfortably. We discussed the plan of care and her goals of care. The patient wishes to be DNR/DNI. 01/02 Renal function improved, continues on BiPAP, started lasix 40 mg IV BID. Goals of care discussion with son at bedside, goal is to get the patient stable enough to go home and consider hospice at home. D-dimer mildly elevated, discussed CTA chest with the patient, she declined further evaluation for pulmonary embolism. ECHO report pending. Vitamin B12 level 246, started vitamin B12 IM supplement. 01/03 The patient continues on high flow nasal canula, had low blood pressure this morning and tachycardia. Reviewed the possibility of a pulmonary embolism again, the patient agreed to a CTA chest today. The CTA chest was positive for a pu lmonary embolism, also noted was a 2.5 cm cm right breast mass. Therapeutic Lovenox was started for anticoagulation. Lasix was discontinued. Physical exam Head: Atraumatic, normal inspection. Eyes: normal appearance, no scleral icterus. Neck: full ROM Respiratory: On high flow nasal canula, respiratory rate in the mid teens. Cardiovascular: normal rate and rhythm, S1, S2. GI/Abdominal: Obesely distended, soft, nontender, no guarding. : Carbajal catheter present. Extremities: full range of motion, nontender. Neurological: CN II-XII intact, intact motor, intact sensation. Psychiatric: normal mood. Skin: warm, normal color Constitutional Vitals: Vital Signs Temp Pulse Resp BP Pulse Ox 97.3 F 82 24 H 102/61 98 01/03/22 12:01 01/03/22 12:01 01/03/22 12:01 01/03/22 12:01 01/03/22 12:01 Period Temp Pulse Resp BP Sys/Camara Pulse Ox Last 24 Hr 97.3 F-98.8 F 67-112 14-27 93-125/56-95 87-98 Intake and Output 01/02/22 01/03/22 01/03/22 21:59 05:59 13:59 Output Total 850 875 75 Balance -850 -875 -75 Weight 113.081 kg Intake & Output: Intake & Output 01/02/22 01/03/22 01/03/22 21:59 05:59 13:59 Output Total 850 875 75 Balance -850 -875 -75 Weight 113.081 kg Output: Urine Catheter Amount 850 875 75 Other: Meal Lunch Percent of Meal Consumed 100% Feeding Ability Assist with Tray Set Up Urine Appearance Clear Clear Clear Uretheral (Carbajal) Clear Clear Urine Color Bright Yellow Bright Yellow Bright Yellow Uretheral (Carbajal) Bright Yellow Bright Yellow Urine Odor Normal Uretheral (Carbajal) Normal OBJ DATA Labs CBC & Chem 7: 01/03/22 05:18 01/03/22 05:18 Labs: Abnormal Lab Results 01/03/22 01/03/22 01/02/22 10:08 05:18 05:10 MCV MCHC Lymph % (Auto) Lymph # (Auto) RBC Morphology Macrocytosis D-Dimer ABG Methemoglobin 0.3 L VBG pH VBG pCO2 56.1 H VBG pO2 156.2 H VBG HCO3 33.8 H VBG Total CO2 35.5 H VBG O2 Saturation 92.6 H VBG Base Excess 7 H Carboxyhemoglobin 6.2 H Carbon Dioxide 32 H 31 H BUN 32 H 33 H Creatinine Calcium 8.5 L 8.4 L Magnesium GGT 4 L Alkaline Phosphatase 34 L 34 L Lactate Dehydrogenase NT-Pro-B Natriuret Pep Albumin 3.1 L Triglycerides 161 H 151 H 01/02/22 01/01/22 01/01/22 05:10 19:02 19:02 MCV 102.0 H MCHC Lymph % (Auto) Lymph # (Auto) RBC Morphology Abnormal A Macrocytosis 1+ A D-Dimer ABG Methemoglobin 0.3 L VBG pH 7.45 H VBG pCO2 VBG pO2 92.1 H VBG HCO3 31.2 H VBG Total CO2 32.6 H VBG O2 Saturation 87.4 H VBG Base Excess 6 H Carboxyhemoglobin 9.8 H Carbon Dioxide BUN 34 H Creatinine 1.2 H Calcium Magnesium 2.7 H GGT Alkaline Phosphatase 36 L Lactate Dehydrogenase 315 H NT-Pro-B Natriuret Pep Albumin Triglycerides 01/01/22 01/01/22 01/01/22 12:02 12:02 12:02 MCV 103.0 H MCHC 30.9 L Lymph % (Auto) 14.3 L Lymph # (Auto) 1.01 L RBC Morphology Macrocytosis D-Dimer 1.07 H ABG Methemoglobin VBG pH VBG pCO2 VBG pO2 VBG HCO3 VBG Total CO2 VBG O2 Saturation VBG Base Excess Carboxyhemoglobin Carbon Dioxide 31 H BUN 33 H Creatinine 1.3 H Calcium Magnesium GGT Alkaline Phosphatase 37 L Lactate Dehydrogenase NT-Pro-B Natriuret Pep 7929.0 H Albumin Triglycerides Meds: Medications Acetaminophen (Acetaminophen 325 Mg Tablet) 650 mg PO Q6HP PRN; Protocol PRN Reason: Per Pain Protocol/Fever > 101 Last Admin: 01/02/22 09:30 Dose: 650 mg Documented by: Hydrocodone Bitart/Acetaminophen (Hydrocodone/Apap 5/325mg Tablet) 1 tab PO Q4HP PRN; Protocol PRN Reason: Per Pain Protocol Last Admin: 01/03/22 09:09 Dose: 1 tab Documented by: Albuterol Sulfate (Albuterol Sulfate 2.5 Mg/3 Ml Nebulizer) 2.5 mg NEB Q2HP PRN PRN Reason: Shortness Of Breath Albuterol/Ipratropium (Ipratropium/Albuterol 3 Ml Ampul.Neb) 3 ml NEB Q6HRT [facility] Last Admin: 01/03/22 11:46 Dose: 3 ml Documented by: Atorvastatin Calcium (Atorvastatin 40 Mg Tablet) 40 mg PO [facility] Last Admin: 01/02/22 21:09 Dose: 40 mg Documented by: Calcium/Vitamin D (Calcium W/Vit D3 500 Mg Tablet) 500 mg PO DAILY [facility] Last Admin: 01/03/22 09:07 Dose: 500 mg Documented by: Cephalexin HCl (Cephalexin 250 Mg Capsule) 250 mg PO HS [facility]; Protocol Last Admin: 01/02/22 21:08 Dose: 250 mg Documented by: Cyanocobalamin (Cyanocobalamin 1,000 Mcg/Ml Vial) 1,000 mcg IM DAILY [facility] Stop: 01/09/22 16:09 Last Admin: 01/03/22 09:08 Dose: 1,000 mcg Documented by: Docusate Sodium (Docusate Sodium 100 Mg Capsule) 100 mg PO BID [facility] Last Admin: 01/03/22 09:07 Dose: 100 mg Documented by: Enoxaparin Sodium (Enoxaparin 120 Mg/0.8 Ml Syringe) 120 mg SQ Q12H [facility] Fenofibrate (Fenofibrate 43 Mg Capsule) 43 mg PO HS [facility] Last Admin: 01/02/22 21:08 Dose: 43 mg Documented by: Gabapentin (Gabapentin 100 Mg Capsule) 100 mg PO TID [facility] Last Admin: 01/03/22 09:08 Dose: 100 mg Documented by: Lactulose (Lactulose 20 Gm/30 Ml Oral.Kym) 10 gm PO DAILYP PRN PRN Reason: Constipation Latanoprost (Latanoprost Ophth Drops 2.5ml Bottle) 1 gtt OU BID [facility] Last Admin: 01/03/22 09:08 Dose: 1 gtt Documented by: Ondansetron HCl (Ondansetron 4 Mg/2 Ml Vial) 4 mg IV Q4HP PRN; Protocol PRN Reason: Nausea And Vomiting Last Admin: 01/03/22 07:22 Dose: 4 mg Documented by: Senna (Sennosides 1 Tablet) 2 tab PO HSP PRN PRN Reason: Constipation Sodium Chloride (0.9 % Sodium Chloride 10 Ml Syringe) 10 ml IV Q8 [facility] Last Admin: 01/03/22 04:46 Dose: 10 ml Documented by: Timolol Maleate (Timolol 0.25% Ophth Drops Bottle 5ml) 1 gtt OU BID [facility] Last Admin: 01/03/22 09:04 Dose: Not Given Documented by: ABG Interpretation ABG results: 01/01/22 01/03/22 19:02 10:08 ABG Methemoglobin 0.3 L 0.3 L VBG pH 7.45 H 7.40 VBG pCO2 46.4 56.1 H VBG pO2 92.1 H 156.2 H VBG HCO3 31.2 H 33.8 H VBG Total CO2 32.6 H 35.5 H VBG O2 Saturation 87.4 H 92.6 H VBG Base Excess 6 H 7 H A/P Narrative A/P Narrative: Assessment: 81 year old female with a history of hypertension, hyperlipidemia, recurrent UTIs on suppressive cephalexin, macular degeneration, obesity, chronic hypoxia on home oxygen 2 L/min recently diagnosed heart failure with preserved ejection fraction who presented to the emergency department for a chief complaint of shortness of breath and worsening hypoxia. The patient was found to have pulmonary emboli as well as a right 2.5 cm breast mass. #Acute on chronic hypoxic respiratory failure #Pulmonary embolism w/ mild RV stain -possible breast mass #Hypercapnic respiratory failure -Suspect acute on chronic. #Probable obesity hypoventilation syndrome #Resolving acute kidney injury #Right 2.5 cm breast mass #Essential hypertension #Hyperlipidemia #Recurrent UTIs on suppressive cephalexin #History of vitamin B12 deficiency/macrocytosis #Hematoma/mass adjacent to right atrium and right ventricle #Suspected sleep apnea #Obesity BMI 40 Plan -Start Lovenox 120 mg BID. -Hold lasix for now, likely resume oral lasix tomorrow. -Oxygen supplementation. -BiPAP as needed. -Essential home medications. -Vitamin B12 supplementation. -Carbajal catheter for accurate urine output, remove when able. -Outpatient mammogram and breast ultrasound if within the patient's goals of care. -PT consult. -DVT prophylaxis: Therapeutic Lovenox. -CODE STATUS: DNR/DNI -Disposition: Home when stable on anticoagulation if within goals of care. The patient is considering hospice at home. Time Spent With Patient Time: Total time spent is greater than 50% in coordination of care (as documented) at patient's floor/unit and/or counseling patient:
[2022-01-03] MEDS ORDERED: ENOXAPARIN 120 MG/0.8 ML SYRINGE SQ SCH ×2 (13:15→22:00)
[2022-01-03] MEDS ORDERED: ENOXAPARIN 120 MG/0.8 ML SYRINGE SQ ONE (13:30)
--- NOTE | 2022-01-03 13:43 | EKG ---
[facility] Test Date: 2022-01-03 Pat Name: Amarilis Merrill Department: ICU Room: 120A Gender: Female Lead [id number]: : [id number] Requested By: Harjeet Keys Order Number: [id number] Reading MD: Lety Summers D.O. Measurements Intervals [place] Rate: 103 P: 87 AR: 162 QRS: 107 QRSD: 102 T: -17 QT: 357 QTc: 468 Interpretive Statements Sinus rhythm with PACs Low voltage with right axis deviation Electronically Signed On 01-03-2022 13:42:56 PST by Lety Summers D.O. /store/[id number]
[2022-01-03] MEDS: POLYETHYLENE GLYCOL 3350 17 GM PACKET PO PRN (18:44)
[2022-01-03] MEDS: ATORVASTATIN 40 MG TABLET PO SCH (20:44)
[2022-01-03] MEDS: CEPHALEXIN 250 MG CAPSULE PO SCH (20:44)
[2022-01-03] MEDS: FENOFIBRATE 43 MG CAPSULE PO SCH (20:44)
[2022-01-04] MEDS: IPRATROPIUM/ALBUTEROL 3 ML AMPUL.NEB NEB SCH ×4 (01:10→19:30)
[2022-01-04] MEDS: 0.9 % SODIUM CHLORIDE 10 ML SYRINGE IV SCH ×3 (05:44→20:55)
[2022-01-04] MEDS: ACETAMINOPHEN 325 MG TABLET PO PRN (05:48)
[2022-01-04 07:27] LABS: Hematocrit 41.4 % (34.1-44.9); Hemoglobin 13.2 g/dL (11.2-15.7); Mean Corpuscular HGB Conc 31.9 g/dL (31.0-36.0); Mean Platelet Volume 9.4 fL (7.4-10.4); Platelet Count 213 K/mcL (140-440); RBC 4.06 M/mcL (3.59-5.38); Red Cell Distribution Width 13.4 % (11.5-14.5); WBC 6.2 K/mcL (4.5-11.0)
[2022-01-04 07:38] LABS: ALT/SGPT 9 U/L (<40); AST/SGOT 13 U/L (<32); Albumin 3.2 gm/dL (3.2-5.2); Albumin/Globulin Ratio 1.2 (1.0-2.3); Alkaline Phosphatase 33 U/L (39-117); Bilirubin,Direct < 0.2 mg/dL (0-0.3); Bilirubin,Total 0.3 mg/dL (0.1-1.0); Blood Urea Nitrogen 37 mg/dL (8-23); Calcium 8.8 mg/dL (8.6-10.4); Carbon Dioxide 33 mmol/L (22-30); Chloride 94 mmol/L (96-108); Globulin 2.6 gm/dL (2.2-3.7); Glomerular Filtration Rate 47; Glucose 94 mg/dL (70-105); Lactate Dehydrogenase 206 U/L (135-225); Phosphorous 3.5 mg/dL (2.5-4.5); Triglycerides 111 mg/dL (<150); Uric Acid 7.4 mg/dL (2.5-8.0)
[2022-01-04 08:18] LABS: Lymphocytes % 25 % (15-49); Macrocytosis 1+ (None Seen); Monocytes % (Manual) 11 % (1-12); Platelet Estimate NORMAL (Normal); RBC Morphology ABNORMAL (Normal); Segmented Neutrophils % 64 % (38-78)
[2022-01-04] MEDS ORDERED: APIXABAN 5 MG TABLET PO SCH (09:00)
[2022-01-04] MEDS ORDERED: FUROSEMIDE 20 MG TABLET PO SCH (09:00)
[2022-01-04] MEDS: CALCIUM W/VIT D3 500 MG TABLET PO SCH (10:03)
[2022-01-04] MEDS: ENOXAPARIN 120 MG/0.8 ML SYRINGE SQ SCH ×2 (10:03→20:54)
[2022-01-04] MEDS: GABAPENTIN 100 MG CAPSULE PO SCH ×3 (10:03→20:54)
[2022-01-04] MEDS: DOCUSATE SODIUM 100 MG CAPSULE PO SCH ×2 (10:03→20:54)
[2022-01-04] MEDS: TIMOLOL 0.25% OPHTH DROPS BOTTLE 5ML OU SCH ×2 (10:04→20:55)
[2022-01-04] MEDS: CYANOCOBALAMIN 1,000 MCG/ML VIAL IM SCH (10:04)
[2022-01-04] MEDS: LATANOPROST OPHTH DROPS 2.5ML BOTTLE OU SCH ×2 (10:05→20:56)
--- NOTE | 2022-01-04 10:42 | Internal Med Progress Note ---
SUBJECTIVE Subjective Patient information: Note initiated : 01/04/22 at 10:39 am Service Date, if different from initiated Date: [] Patient: Amarilis Medellin 81 y/o F admitted on 01/01/22 for SOB, hypoxia. Chief Complaint: [] Interval history: Ms. Miranda Merrill is a 81 year old female with a history of hypertension, hyperlipidemia, recurrent UTIs on suppressive cephalexin, macular degeneration, chronic hypoxia on home oxygen 2 L/min recently diagnosed heart failure with preserved ejection fraction who presented to the emergency department for a chief complaint of shortness of breath and worsening hypoxia. She says that she was diagnosed with congestive heart failure in the last couple months and started on oral Lasix. Since that time she has been struggling with shortness of breath, especially while lying flat. In the ED, the patient was found to be severely hypoxic. ABG was done and in addition to hypoxemia showed a pH of 7.28 and PCO2 of 77 consistent with respiratory acidosis. ABG bicarbonate level was 36.2. This suggests a chronic respiratory acidosis. The patient does not have a known history of obstructive lung disease. Chest x-ray was consistent with pulmonary vascular congestion. Routine lab work with CBC, CMP, cardiac enzymes was most impressive for a NT proBNP of almost 8000. Troponin was normal. EKG did not show any acute ischemic changes. Creatinine was 1.3, up from the patient's baseline of about 0.8. The patient was started on BiPAP with supplemental oxygen and given a dose of Lasix 40 mg IV. Hospital medicine was consulted for admission. Review of the recent transthoracic echocardiogram re veals an estimated LVEF of 70%, a moderately dilated right ventricle with mildly reduced right ventricular systolic function. Pulmonary artery pressure estimation was not possible. Additionally, there was comment of a hematoma/mass seen in the pericardial space adjacent to the right atrium and right ventricle as well as a small to moderate pericardial effusion. When I evaluated the patient in the ED, she was on BiPAP and appeared to be breathing comfortably. We discussed the plan of care and her goals of care. The patient wishes to be DNR/DNI. 01/02 Renal function improved, continues on BiPAP, started lasix 40 mg IV BID. Goals of care discussion with son at bedside, goal is to get the patient stable enough to go home and consider hospice at home. D-dimer mildly elevated, discussed CTA chest with the patient, she declined further evaluation for pulmonary embolism. ECHO report pending. Vitamin B12 level 246, started vitamin B12 IM supplement. 01/03 The patient continues on high flow nasal canula, had low blood pressure this morning and tachycardia. Reviewed the possibility of a pulmonary embolism again, the patient agreed to a CTA chest today. The CTA chest was positive for a p ulmonary embolism, also noted was a 2.5 cm cm right breast mass. Therapeutic Lovenox was started for anticoagulation. Lasix was discontinued. 01/04 Transition to [facility], the patient continues to required high FiO2. Blood pressure low normal, TTE report showed borderline reduced right ventricular systolic function. Discussed the option of thrombolytic therapy, the patient wants to think about it but leaning towards no further intervention and comfort cares. She will discuss it further with her family. On therapeutic Lovenox twice daily. Physical exam Head: Atraumatic, normal inspection. Eyes: normal appearance, no scleral icterus. Neck: full ROM Respiratory: On high flow nasal canula, respiratory rate in the mid teens. Cardiovascular: normal rate and rhythm, S1, S2. GI/Abdominal: Obesely distended, soft, nontender, no guarding. : Carbajal catheter present. Extremities: Bilateral lower extremity pitting edema, full range of motion, nontender. Neurological: CN II-XII intact, intact motor, intact sensation. Psychiatric: normal mood. Skin: warm, normal color Constitutional Vitals: Vital Signs Temp Pulse Resp BP Pulse Ox 97.3 F 79 17 107/66 93 01/04/22 04:00 01/04/22 06:45 01/04/22 06:45 01/04/22 05:00 01/04/22 06:45 Period Temp Pulse Resp BP Sys/Camara Pulse Ox Last 24 Hr 97.3 F-99.5 F 72-128 14-26 90-155/55-132 81-99 Intake and Output 01/03/22 01/04/22 01/04/22 21:59 05:59 13:59 Intake Total 1480 Output Total 460 Balance 1480 -460 Weight 113.217 kg Intake & Output: Intake & Output 01/03/22 01/04/22 01/04/22 21:59 05:59 13:59 Intake Total 1480 Output Total 460 Balance 1480 -460 Weight 113.217 kg Intake: Oral 1480 Output: Urine Catheter Amount 460 Other: Urine Appearance Clear Urine Color Dark Yellow Stool Size Large Stool Color Brown Stool Consistency Formed # Bowel Movements 1 OBJ DATA Labs CBC & Chem 7: 01/04/22 05:15 01/04/22 05:15 Labs: Abnormal Lab Results 01/04/22 01/04/22 01/03/22 05:15 05:15 10:08 MCV 102.0 H MCHC Lymph % (Auto) Lymph # (Auto) RBC Morphology Abnormal A Macrocytosis 1+ A D-Dimer ABG Methemoglobin 0.3 L VBG pH VBG pCO2 56.1 H VBG pO2 156.2 H VBG HCO3 33.8 H VBG Total CO2 35.5 H VBG O2 Saturation 92.6 H VBG Base Excess 7 H Carboxyhemoglobin 6.2 H Chloride 94 L Carbon Dioxide 33 H BUN 37 H Creatinine Calcium Magnesium GGT Alkaline Phosphatase 33 L Lactate Dehydrogenase NT-Pro-B Natriuret Pep Total Protein 5.8 L Albumin Triglycerides 01/03/22 01/02/22 01/02/22 05:18 05:10 05:10 MCV 102.0 H MCHC Lymph % (Auto) Lymph # (Auto) RBC Morphology Abnormal A Macrocytosis 1+ A D-Dimer ABG Methemoglobin VBG pH VBG pCO2 VBG pO2 VBG HCO3 VBG Total CO2 VBG O2 Saturation VBG Base Excess Carboxyhemoglobin Chloride Carbon Dioxide 32 H 31 H BUN 32 H 33 H Creatinine Calcium 8.5 L 8.4 L Magnesium GGT 4 L Alkaline Phosphatase 34 L 34 L Lactate Dehydrogenase NT-Pro-B Natriuret Pep Total Protein Albumin 3.1 L Triglycerides 161 H 151 H 01/01/22 01/01/22 01/01/22 19:02 19:02 12:02 MCV MCHC Lymph % (Auto) Lymph # (Auto) RBC Morphology Macrocytosis D-Dimer 1.07 H ABG Methemoglobin 0.3 L VBG pH 7.45 H VBG pCO2 VBG pO2 92.1 H VBG HCO3 31.2 H VBG Total CO2 32.6 H VBG O2 Saturation 87.4 H VBG Base Excess 6 H Carboxyhemoglobin 9.8 H Chloride Carbon Dioxide BUN 34 H Creatinine 1.2 H Calcium Magnesium 2.7 H GGT Alkaline Phosphatase 36 L Lactate Dehydrogenase 315 H NT-Pro-B Natriuret Pep Total Protein Albumin Triglycerides 01/01/22 01/01/22 12:02 12:02 MCV 103.0 H MCHC 30.9 L Lymph % (Auto) 14.3 L Lymph # (Auto) 1.01 L RBC Morphology Macrocytosis D-Dimer ABG Methemoglobin VBG pH VBG pCO2 VBG pO2 VBG HCO3 VBG Total CO2 VBG O2 Saturation VBG Base Excess Carboxyhemoglobin Chloride Carbon Dioxide 31 H BUN 33 H Creatinine 1.3 H Calcium Magnesium GGT Alkaline Phosphatase 37 L Lactate Dehydrogenase NT-Pro-B Natriuret Pep 7929.0 H Total Protein Albumin Triglycerides Meds: Medications Acetaminophen (Acetaminophen 325 Mg Tablet) 650 mg PO Q6HP PRN; Protocol PRN Reason: Per Pain Protocol/Fever > 101 Last Admin: 01/04/22 05:48 Dose: 650 mg Documented by: Hydrocodone Bitart/Acetaminophen (Hydrocodone/Apap 5/325mg Tablet) 1 tab PO Q4HP PRN; Protocol PRN Reason: Per Pain Protocol Last Admin: 01/03/22 09:09 Dose: 1 tab Documented by: Albuterol Sulfate (Albuterol Sulfate 2.5 Mg/3 Ml Nebulizer) 2.5 mg NEB Q2HP PRN PRN Reason: Shortness Of Breath Albuterol/Ipratropium (Ipratropium/Albuterol 3 Ml Ampul.Neb) 3 ml NEB Q6HRT [facility] Last Admin: 01/04/22 06:44 Dose: 3 ml Documented by: Atorvastatin Calcium (Atorvastatin 40 Mg Tablet) 40 mg PO [facility] Last Admin: 01/03/22 20:44 Dose: 40 mg Documented by: Calcium/Vitamin D (Calcium W/Vit D3 500 Mg Tablet) 500 mg PO DAILY [facility] Last Admin: 01/04/22 10:03 Dose: 500 mg Documented by: Cephalexin HCl (Cephalexin 250 Mg Capsule) 250 mg PO [facility]; Protocol Last Admin: 01/03/22 20:44 Dose: 250 mg Documented by: Cyanocobalamin (Cyanocobalamin 1,000 Mcg/Ml Vial) 1,000 mcg IM DAILY [facility] Stop: 01/09/22 16:09 Last Admin: 01/04/22 10:04 Dose: 1,000 mcg Documented by: Docusate Sodium (Docusate Sodium 100 Mg Capsule) 100 mg PO BID [facility] Last Admin: 01/04/22 10:03 Dose: 100 mg Documented by: Enoxaparin Sodium (Enoxaparin 120 Mg/0.8 Ml Syringe) 120 mg SQ BID [facility] Last Admin: 01/04/22 10:03 Dose: 120 mg Documented by: Fenofibrate (Fenofibrate 43 Mg Capsule) 43 mg PO HS [facility] Last Admin: 01/03/22 20:44 Dose: 43 mg Documented by: Furosemide (Furosemide 20 Mg Tablet) 20 mg PO QAM [facility] Last Admin: 01/04/22 10:03 Dose: 20 mg Documented by: Gabapentin (Gabapentin 100 Mg Capsule) 100 mg PO TID [facility] Last Admin: 01/04/22 10:03 Dose: 100 mg Documented by: Lactulose (Lactulose 20 Gm/30 Ml Oral.Kym) 10 gm PO DAILYP PRN PRN Reason: Constipation Latanoprost (Latanoprost Ophth Drops 2.5ml Bottle) 1 gtt OU BID [facility] Last Admin: 01/04/22 10:05 Dose: Not Given Documented by: Ondansetron HCl (Ondansetron 4 Mg/2 Ml Vial) 4 mg IV Q4HP PRN; Protocol PRN Reason: Nausea And Vomiting Last Admin: 01/03/22 07:22 Dose: 4 mg Documented by: Polyethylene Glycol (Polyethylene Glycol 3350 17 Gm Packet) 17 gm PO DAILYP PRN PRN Reason: Constipation Last Admin: 01/03/22 18:44 Dose: 17 gm Documented by: Senna (Sennosides 1 Tablet) 2 tab PO HSP PRN PRN Reason: Constipation Sodium Chloride (0.9 % Sodium Chloride 10 Ml Syringe) 10 ml IV Q8 [facility] Last Admin: 01/04/22 05:44 Dose: 10 ml Documented by: Timolol Maleate (Timolol 0.25% Ophth Drops Bottle 5ml) 1 gtt OU BID [facility] Last Admin: 01/04/22 10:04 Dose: Not Given Documented by: ABG Interpretation ABG results: 01/01/22 01/03/22 19:02 10:08 ABG Methemoglobin 0.3 L 0.3 L VBG pH 7.45 H 7.40 VBG pCO2 46.4 56.1 H VBG pO2 92.1 H 156.2 H VBG HCO3 31.2 H 33.8 H VBG Total CO2 32.6 H 35.5 H VBG O2 Saturation 87.4 H 92.6 H VBG Base Excess 6 H 7 H A/P Narrative A/P Narrative: Assessment: 81 year old female with a history of hypertension, hyperlipidemia, recurrent UTIs on suppressive cephalexin, macular degeneration, obesity, chronic hypoxia on home oxygen 2 L/min recently diagnosed heart failure with preserved ejection fraction who presented to the emergency department for a chief complaint of shortness of breath and worsening hypoxia. The patient was found to have pulmonary emboli as well as a right 2.5 cm breast mass on CT scan that the patient says is not new. The patient was started on anticoagulation with Lovenox. Given her low blood pressure and persistent hypoxia, thrombolytic therapy with interventional radiology was discussed as a possible option given the severity of her illness. The patient is considering the risks and benefits of that option. She is also considering hospice at home or comfort care in the hospital if she is unable to discharge home due to high oxygen requirement. #Acute on chronic hypoxic respiratory failure #Pulmonary embolism w/ mild RV stain #Hypercapnic respiratory failure -Suspect acute on chronic. #Probable obesity hypoventilation syndrome #Resolved acute kidney injury #Right 2.5 cm breast mass -Not new according to the patient #Essential hypertension #Hyperlipidemia #Recurrent UTIs on suppressive cephalexin #History of vitamin B12 deficiency/macrocytosis #Hematoma/mass adjacent to right atrium and right ventricle #Suspected sleep apnea #Obesity BMI 40 Plan -Awaiting patient's decision regarding possible thrombolytic therapy option, if patient wants to pursue then discussed with interventional radiology. -Continue Lovenox 120 mg BID. -Hold lasix for now due to low BP. -Oxygen supplementation, currently requiring HHFNC. -Essential home medications. -Vitamin B12 supplementation. -Carbajal catheter for accurate urine output, remove when able. -Outpatient mammogram and breast ultrasound if within the patient's goals of care. -PT consult. -Goals of care: Patient is leaning towards hospice at home, if unable to go home due to high oxygen requirements then possibly comfort cares in the hospital. -DVT prophylaxis: Therapeutic Lovenox. -CODE STATUS: DNR/DNI -Disposition: The patient is considering hospice/comfort care. Time Spent With Patient Time: Total time spent is greater than 50% in coordination of care (as documented) at patient's floor/unit and/or counseling patient:
--- NOTE | 2022-01-04 13:26 | Internal Med Progress Note ---
SUBJECTIVE Subjective Patient information: Note initiated : 01/04/22 at 1:19 pm Service Date, if different from initiated Date: [] Patient: Amarilis Medellin 81 y/o F admitted on 01/01/22 for SOB, hypoxia. Chief Complaint: [] Interval history: Ms. Miranda Merrill is a 81 year old female with a history of hypertension, hyperlipidemia, recurrent UTIs on suppressive cephalexin, macular degeneration, chronic hypoxia on home oxygen 2 L/min recently diagnosed heart failure with preserved ejection fraction who presented to the emergency department for a chief complaint of shortness of breath and worsening hypoxia. She says that she was diagnosed with congestive heart failure in the last couple months and started on oral Lasix. Since that time she has been struggling with shortness of breath, especially while lying flat. In the ED, the patient was found to be severely hypoxic. ABG was done and in addition to hypoxemia showed a pH of 7.28 and PCO2 of 77 consistent with respiratory acidosis. ABG bicarbonate level was 36.2. This suggests a chronic respiratory acidosis. The patient does not have a known history of obstructive lung disease. Chest x-ray was consistent with pulmonary vascular congestion. Routine lab work with CBC, CMP, cardiac enzymes was most impressive for a NT proBNP of almost 8000. Troponin was normal. EKG did not show any acute ischemic changes. Creatinine was 1.3, up from the patient's baseline of about 0.8. The patient was started on BiPAP with supplemental oxygen and given a dose of Lasix 40 mg IV. Hospital medicine was consulted for admission. Review of the recent transthoracic echocardiogram rev eals an estimated LVEF of 70%, a moderately dilated right ventricle with mildly reduced right ventricular systolic function. Pulmonary artery pressure estimation was not possible. Additionally, there was comment of a hematoma/mass seen in the pericardial space adjacent to the right atrium and right ventricle as well as a small to moderate pericardial effusion. When I evaluated the patient in the ED, she was on BiPAP and appeared to be breathing comfortably. We discussed the plan of care and her goals of care. The patient wishes to be DNR/DNI. 01/02 Renal function improved, continues on BiPAP, started lasix 40 mg IV BID. Goals of care discussion with son at bedside, goal is to get the patient stable enough to go home and consider hospice at home. D-dimer mildly elevated, discussed CTA chest with the patient, she declined further evaluation for pulmonary embolism. ECHO report pending. Vitamin B12 level 246, started vitamin B12 IM supplement. 01/03 The patient continues on high flow nasal canula, had low blood pressure this morning and tachycardia. Reviewed the possibility of a pulmonary embolism again, the patient agreed to a CTA chest today. The CTA chest was positive for a pu lmonary embolism, also noted was a 2.5 cm cm right breast mass. Therapeutic Lovenox was started for anticoagulation. Lasix was discontinued. 01/04 Transition to [facility], the patient continues to required high FiO2. Blood pressure low normal, TTE report showed borderline reduced right ventricular systolic function. Discussed the option of thrombolytic therapy, the patient wants to think about it but leaning towards no further intervention and comfort cares. She will discuss it further with her family. On therapeutic Lovenox twice daily. Physical exam Head: Atraumatic, normal inspection. Eyes: normal appearance, no scleral icterus. Neck: full ROM Respiratory: On high flow nasal canula, respiratory rate in the mid teens. Cardiovascular: normal rate and rhythm, S1, S2. GI/Abdominal: Obesely distended, soft, nontender, no guarding. : Carbajal catheter present. Extremities: Bilateral lower extremity pitting edema, full range of motion, nontender. Neurological: CN II-XII intact, intact motor, intact sensation. Psychiatric: normal mood. Skin: warm, normal color Constitutional Vitals: Vital Signs Temp Pulse Resp BP Pulse Ox 97.3 F 90 15 107/66 94 01/04/22 04:00 01/04/22 13:18 01/04/22 13:18 01/04/22 05:00 01/04/22 13:18 Period Temp Pulse Resp BP Sys/Camara Pulse Ox Last 24 Hr 97.3 F-99.5 F 72-92 15-26 90-115/55-73 81-99 Intake and Output 01/03/22 01/04/22 01/04/22 21:59 05:59 13:59 Intake Total 1480 Output Total 460 Balance 1480 -460 Weight 113.217 kg Intake & Output: Intake & Output 01/03/22 01/04/22 01/04/22 21:59 05:59 13:59 Intake Total 1480 Output Total 460 Balance 1480 -460 Weight 113.217 kg Intake: Oral 1480 Output: Urine Catheter Amount 460 Other: Urine Appearance Clear Urine Color Dark Yellow Stool Size Large Stool Color Brown Stool Consistency Formed # Bowel Movements 1 Exam: General: Alert, Awake, No acute Distress, obese Eyes/N/T: EOMI, Head/Neck: neck supple, CV: RRR, No murmurs, Pulm: Clear b/l, no wheezing/rhonchi/rales Abd: soft, nontender, +BS x4 Ext: no clubbing/cyanosis/edema Neuro: Alert, no focal deficits, moves all extremities, Skin: warm/dry OBJ DATA Labs CBC & Chem 7: 01/04/22 05:15 01/04/22 05:15 Labs: Abnormal Lab Results 01/04/22 01/04/22 01/03/22 05:15 05:15 10:08 MCV 102.0 H RBC Morphology Abnormal A Macrocytosis 1+ A D-Dimer ABG Methemoglobin 0.3 L VBG pH VBG pCO2 56.1 H VBG pO2 156.2 H VBG HCO3 33.8 H VBG Total CO2 35.5 H VBG O2 Saturation 92.6 H VBG Base Excess 7 H Carboxyhemoglobin 6.2 H Chloride 94 L Carbon Dioxide 33 H BUN 37 H Creatinine Calcium Magnesium GGT Alkaline Phosphatase 33 L Lactate Dehydrogenase Total Protein 5.8 L Albumin Triglycerides 01/03/22 01/02/22 01/02/22 05:18 05:10 05:10 MCV 102.0 H RBC Morphology Abnormal A Macrocytosis 1+ A D-Dimer ABG Methemoglobin VBG pH VBG pCO2 VBG pO2 VBG HCO3 VBG Total CO2 VBG O2 Saturation VBG Base Excess Carboxyhemoglobin Chloride Carbon Dioxide 32 H 31 H BUN 32 H 33 H Creatinine Calcium 8.5 L 8.4 L Magnesium GGT 4 L Alkaline Phosphatase 34 L 34 L Lactate Dehydrogenase Total Protein Albumin 3.1 L Triglycerides 161 H 151 H 01/01/22 01/01/22 01/01/22 19:02 19:02 12:02 MCV RBC Morphology Macrocytosis D-Dimer 1.07 H ABG Methemoglobin 0.3 L VBG pH 7.45 H VBG pCO2 VBG pO2 92.1 H VBG HCO3 31.2 H VBG Total CO2 32.6 H VBG O2 Saturation 87.4 H VBG Base Excess 6 H Carboxyhemoglobin 9.8 H Chloride Carbon Dioxide BUN 34 H Creatinine 1.2 H Calcium Magnesium 2.7 H GGT Alkaline Phosphatase 36 L Lactate Dehydrogenase 315 H Total Protein Albumin Triglycerides 01/01/22 12:02 MCV RBC Morphology Macrocytosis D-Dimer ABG Methemoglobin VBG pH VBG pCO2 VBG pO2 VBG HCO3 VBG Total CO2 VBG O2 Saturation VBG Base Excess Carboxyhemoglobin Chloride Carbon Dioxide 31 H BUN 33 H Creatinine 1.3 H Calcium Magnesium GGT Alkaline Phosphatase 37 L Lactate Dehydrogenase Total Protein Albumin Triglycerides Meds: Medications Acetaminophen (Acetaminophen 325 Mg Tablet) 650 mg PO Q6HP PRN; Protocol PRN Reason: Per Pain Protocol/Fever > 101 Last Admin: 01/04/22 05:48 Dose: 650 mg Documented by: Hydrocodone Bitart/Acetaminophen (Hydrocodone/Apap 5/325mg Tablet) 1 tab PO Q4HP PRN; Protocol PRN Reason: Per Pain Protocol Last Admin: 01/03/22 09:09 Dose: 1 tab Documented by: Albuterol Sulfate (Albuterol Sulfate 2.5 Mg/3 Ml Nebulizer) 2.5 mg NEB Q2HP PRN PRN Reason: Shortness Of Breath Albuterol/Ipratropium (Ipratropium/Albuterol 3 Ml Ampul.Neb) 3 ml NEB Q6HRT [facility] Last Admin: 01/04/22 13:16 Dose: 3 ml Documented by: Atorvastatin Calcium (Atorvastatin 40 Mg Tablet) 40 mg PO [facility] Last Admin: 01/03/22 20:44 Dose: 40 mg Documented by: Calcium/Vitamin D (Calcium W/Vit D3 500 Mg Tablet) 500 mg PO DAILY [facility] Last Admin: 01/04/22 10:03 Dose: 500 mg Documented by: Cephalexin HCl (Cephalexin 250 Mg Capsule) 250 mg PO HS [facility]; Protocol Last Admin: 01/03/22 20:44 Dose: 250 mg Documented by: Cyanocobalamin (Cyanocobalamin 1,000 Mcg/Ml Vial) 1,000 mcg IM DAILY [facility] Stop: 01/09/22 16:09 Last Admin: 01/04/22 10:04 Dose: 1,000 mcg Documented by: Docusate Sodium (Docusate Sodium 100 Mg Capsule) 100 mg PO BID [facility] Last Admin: 01/04/22 10:03 Dose: 100 mg Documented by: Enoxaparin Sodium (Enoxaparin 120 Mg/0.8 Ml Syringe) 120 mg SQ BID [facility] Last Admin: 01/04/22 10:03 Dose: 120 mg Documented by: Fenofibrate (Fenofibrate 43 Mg Capsule) 43 mg PO HS [facility] Last Admin: 01/03/22 20:44 Dose: 43 mg Documented by: Gabapentin (Gabapentin 100 Mg Capsule) 100 mg PO TID [facility] Last Admin: 01/04/22 10:03 Dose: 100 mg Documented by: Lactulose (Lactulose 20 Gm/30 Ml Oral.Kym) 10 gm PO DAILYP PRN PRN Reason: Constipation Latanoprost (Latanoprost Ophth Drops 2.5ml Bottle) 1 gtt OU BID [facility] Last Admin: 01/04/22 10:05 Dose: Not Given Documented by: Ondansetron HCl (Ondansetron 4 Mg/2 Ml Vial) 4 mg IV Q4HP PRN; Protocol PRN Reason: Nausea And Vomiting Last Admin: 01/03/22 07:22 Dose: 4 mg Documented by: Polyethylene Glycol (Polyethylene Glycol 3350 17 Gm Packet) 17 gm PO DAILYP PRN PRN Reason: Constipation Last Admin: 01/03/22 18:44 Dose: 17 gm Documented by: Senna (Sennosides 1 Tablet) 2 tab PO HSP PRN PRN Reason: Constipation Sodium Chloride (0.9 % Sodium Chloride 10 Ml Syringe) 10 ml IV Q8 [facility] Last Admin: 01/04/22 05:44 Dose: 10 ml Documented by: Timolol Maleate (Timolol 0.25% Ophth Drops Bottle 5ml) 1 gtt OU BID [facility] Last Admin: 01/04/22 10:04 Dose: Not Given Documented by: ABG Interpretation ABG results: 01/01/22 01/03/22 19:02 10:08 ABG Methemoglobin 0.3 L 0.3 L VBG pH 7.45 H 7.40 VBG pCO2 46.4 56.1 H VBG pO2 92.1 H 156.2 H VBG HCO3 31.2 H 33.8 H VBG Total CO2 32.6 H 35.5 H VBG O2 Saturation 87.4 H 92.6 H VBG Base Excess 6 H 7 H A/P Narrative A/P Narrative: A: #Acute on chronic hypoxic respiratory failure: 2/2 PE #Pulmonary embolism w/ mild RV stain: #Hypercapnic respiratory failure, Suspect acute on chronic. #Probable obesity hypoventilation syndrome #Suspected HALIMA: #Obesity: BMI 40 #JUANA: Resolved #Right 2.5 cm breast mass -Not new according to the patient #Essential hypertension / Hyperlipidemia: #Recurrent UTIs on suppressive cephalexin #h/o vitamin B12 deficiency/macrocytosis: #Hematoma/mass adjacent to right atrium and right ventricle Plan: -Continue Lovenox 120 mg BID. -Oxygen supplementation, currently requiring HHFNC. -Carbajal catheter for accurate urine output, remove when able. -Hold lasix for now due to low BP., hold norvasc/ARB for low bp -Outpatient mammogram and breast ultrasound if within the patient's goals of care. -PT consult. -Goals of care: Patient is leaning towards hospice at home, if unable to go home due to high oxygen requirements then possibly comfort cares in the hospital. -Disposition: The patient is considering hospice/comfort care. -ppx: Therapeutic Lovenox. CODE STATUS: DNR/DNI Time Spent With Patient Time: Total time spent is greater than 50% in coordination of care (as documented) at patient's floor/unit and/or counseling patient:
[2022-01-04] MEDS: ATORVASTATIN 40 MG TABLET PO SCH (20:54)
[2022-01-04] MEDS: CEPHALEXIN 250 MG CAPSULE PO SCH (20:54)
[2022-01-04] MEDS: FENOFIBRATE 43 MG CAPSULE PO SCH (20:54)
[2022-01-05] MEDS: IPRATROPIUM/ALBUTEROL 3 ML AMPUL.NEB NEB SCH ×4 (02:50→18:52)
[2022-01-05] MEDS: 0.9 % SODIUM CHLORIDE 10 ML SYRINGE IV SCH ×3 (05:27→21:54)
[2022-01-05 07:33] LABS: ALT/SGPT 10 U/L (<40); AST/SGOT 12 U/L (<32); Albumin/Globulin Ratio 1.2 (1.0-2.3); Alkaline Phosphatase 32 U/L (39-117); Bilirubin,Direct < 0.2 mg/dL (0-0.3); Bilirubin,Total 0.2 mg/dL (0.1-1.0); Blood Urea Nitrogen 36 mg/dL (8-23); Calcium 8.8 mg/dL (8.6-10.4); Carbon Dioxide 32 mmol/L (22-30); Chloride 95 mmol/L (96-108); Globulin 2.5 gm/dL (2.2-3.7); Glomerular Filtration Rate 59; Glucose 101 mg/dL (70-105); Lactate Dehydrogenase 202 U/L (135-225); Phosphorous 3.2 mg/dL (2.5-4.5); Triglycerides 128 mg/dL (<150)
--- NOTE | 2022-01-05 07:42 | Internal Med Progress Note ---
SUBJECTIVE Subjective Patient information: Note initiated : 01/05/22 at 7:39 am Service Date, if different from initiated Date: [] Patient: Amarilis Medellin 81 y/o F admitted on 01/01/22 for SOB, hypoxia. Chief Complaint: [] Interval history: Ms. Miranda Merrill is a 81 year old female with a history of hypertension, hyperlipidemia, recurrent UTIs on suppressive cephalexin, macular degeneration, chronic hypoxia on home oxygen 2 L/min recently diagnosed heart failure with preserved ejection fraction who presented to the emergency department for a chief complaint of shortness of breath and worsening hypoxia. She says that she was diagnosed with congestive heart failure in the last couple months and started on oral Lasix. Since that time she has been struggling with shortness of breath, especially while lying flat. In the ED, the patient was found to be severely hypoxic. ABG was done and in addition to hypoxemia showed a pH of 7.28 and PCO2 of 77 consistent with respiratory acidosis. ABG bicarbonate level was 36.2. This suggests a chronic respiratory acidosis. The patient does not have a known history of obstructive lung disease. Chest x-ray was consistent with pulmonary vascular congestion. Routine lab work with CBC, CMP, cardiac enzymes was most impressive for a NT proBNP of almost 8000. Troponin was normal. EKG did not show any acute ischemic changes. Creatinine was 1.3, up from the patient's baseline of about 0.8. The patient was started on BiPAP with supplemental oxygen and given a dose of Lasix 40 mg IV. Hospital medicine was consulted for admission. Review of the recent transthoracic echocardiogram rev eals an estimated LVEF of 70%, a moderately dilated right ventricle with mildly reduced right ventricular systolic function. Pulmonary artery pressure estimation was not possible. Additionally, there was comment of a hematoma/mass seen in the pericardial space adjacent to the right atrium and right ventricle as well as a small to moderate pericardial effusion. When I evaluated the patient in the ED, she was on BiPAP and appeared to be breathing comfortably. We discussed the plan of care and her goals of care. The patient wishes to be DNR/DNI. 01/02 Renal function improved, continues on BiPAP, started lasix 40 mg IV BID. Goals of care discussion with son at bedside, goal is to get the patient stable enough to go home and consider hospice at home. D-dimer mildly elevated, discussed CTA chest with the patient, she declined further evaluation for pulmonary embolism. ECHO report pending. Vitamin B12 level 246, started vitamin B12 IM supplement. 01/03 The patient continues on high flow nasal canula, had low blood pressure this morning and tachycardia. Reviewed the possibility of a pulmonary embolism again, the patient agreed to a CTA chest today. The CTA chest was positive for a pu lmonary embolism, also noted was a 2.5 cm cm right breast mass. Therapeutic Lovenox was started for anticoagulation. Lasix was discontinued. 01/04 Transition to [facility], the patient continues to required high FiO2. Blood pressure low normal, TTE report showed borderline reduced right ventricular systolic function. Discussed the option of thrombolytic therapy, the patient wants to think about it but leaning towards no further intervention and comfort cares. She will discuss it further with her family. On therapeutic Lovenox twice daily. 01/05 Still requiring high fraction of inspired oxygen. Patient has occasional cough but denies shortness of breath at rest while on breathing device. Family meeting today. Review of Systems: denies headache/fever/chills/nausea/vomiting/chest or abdominal pain/diarrhea. Otherwise see above. Constitutional Vitals: Vital Signs Temp Pulse Resp BP Pulse Ox 97.3 F 87 16 121/78 92 01/05/22 04:00 01/05/22 07:10 01/05/22 07:10 01/05/22 06:00 01/05/22 07:10 Period Temp Pulse Resp BP Sys/Camara Pulse Ox Last 24 Hr 97.0 F-98.7 F 66-100 12-28 95-127/57-83 86-100 Intake and Output 01/04/22 01/05/22 01/05/22 21:59 05:59 13:59 Intake Total 100 880 Output Total 295 150 Balance -195 730 Weight 113.897 kg Intake & Output: Intake & Output 01/04/22 01/05/22 01/05/22 21:59 05:59 13:59 Intake Total 100 880 Output Total 295 150 Balance -195 730 Weight 113.897 kg Intake: Oral 100 880 Output: Urine Catheter Amount 295 150 Other: Meal Dinner Percent of Meal Consumed 75% Urine Appearance Clear Clear Uretheral (Carbajal) Clear Urine Color Dark Yellow Dark Yellow Uretheral (Carbajal) Bright Yellow Urine Odor Normal Normal Stool Size Large Stool Color Brown Stool Consistency Soft Formed # Bowel Movements 1 Exam: General: Alert, Awake, No acute Distress, obese Eyes/N/T: EOMI, Head/Neck: neck supple, CV: RRR, No murmurs, Pulm: Clear b/l, no wheezing/rhonchi/rales Abd: soft, nontender, +BS x4 Ext: no clubbing/cyanosis, b/l LE trace edema Neuro: Alert, no focal deficits, moves all extremities, Skin: warm/dry OBJ DATA Labs CBC & Chem 7: 01/04/22 05:15 01/05/22 05:14 Labs: Abnormal Lab Results 01/05/22 01/04/22 01/04/22 05:14 05:15 05:15 MCV 102.0 H RBC Morphology Abnormal A Macrocytosis 1+ A ABG Methemoglobin VBG pCO2 VBG pO2 VBG HCO3 VBG Total CO2 VBG O2 Saturation VBG Base Excess Carboxyhemoglobin Chloride 95 L 94 L Carbon Dioxide 32 H 33 H BUN 36 H 37 H Calcium GGT Alkaline Phosphatase 32 L 33 L Total Protein 5.5 L 5.8 L Albumin 3.0 L Triglycerides 01/03/22 01/03/22 01/02/22 10:08 05:18 05:10 MCV RBC Morphology Macrocytosis ABG Methemoglobin 0.3 L VBG pCO2 56.1 H VBG pO2 156.2 H VBG HCO3 33.8 H VBG Total CO2 35.5 H VBG O2 Saturation 92.6 H VBG Base Excess 7 H Carboxyhemoglobin 6.2 H Chloride Carbon Dioxide 32 H 31 H BUN 32 H 33 H Calcium 8.5 L 8.4 L GGT 4 L Alkaline Phosphatase 34 L 34 L Total Protein Albumin 3.1 L Triglycerides 161 H 151 H 01/02/22 05:10 MCV RBC Morphology Abnormal A Macrocytosis 1+ A ABG Methemoglobin VBG pCO2 VBG pO2 VBG HCO3 VBG Total CO2 VBG O2 Saturation VBG Base Excess Carboxyhemoglobin Chloride Carbon Dioxide BUN Calcium GGT Alkaline Phosphatase Total Protein Albumin Triglycerides Meds: Medications Acetaminophen (Acetaminophen 325 Mg Tablet) 650 mg PO Q6HP PRN; Protocol PRN Reason: Per Pain Protocol/Fever > 101 Last Admin: 01/04/22 05:48 Dose: 650 mg Documented by: Hydrocodone Bitart/Acetaminophen (Hydrocodone/Apap 5/325mg Tablet) 1 tab PO Q4HP PRN; Protocol PRN Reason: Per Pain Protocol Last Admin: 01/03/22 09:09 Dose: 1 tab Documented by: Albuterol Sulfate (Albuterol Sulfate 2.5 Mg/3 Ml Nebulizer) 2.5 mg NEB Q2HP PRN PRN Reason: Shortness Of Breath Albuterol/Ipratropium (Ipratropium/Albuterol 3 Ml Ampul.Neb) 3 ml NEB Q6HRT [facility] Last Admin: 01/05/22 07:05 Dose: 3 ml Documented by: Atorvastatin Calcium (Atorvastatin 40 Mg Tablet) 40 mg PO [facility] Last Admin: 01/04/22 20:54 Dose: 40 mg Documented by: Calcium/Vitamin D (Calcium W/Vit D3 500 Mg Tablet) 500 mg PO DAILY [facility] Last Admin: 01/04/22 10:03 Dose: 500 mg Documented by: Cephalexin HCl (Cephalexin 250 Mg Capsule) 250 mg PO [facility]; Protocol Last Admin: 01/04/22 20:54 Dose: 250 mg Documented by: Cyanocobalamin (Cyanocobalamin 1,000 Mcg/Ml Vial) 1,000 mcg IM DAILY [facility] Stop: 01/09/22 16:09 Last Admin: 01/04/22 10:04 Dose: 1,000 mcg Documented by: Docusate Sodium (Docusate Sodium 100 Mg Capsule) 100 mg PO BID [facility] Last Admin: 01/04/22 20:54 Dose: 100 mg Documented by: Enoxaparin Sodium (Enoxaparin 120 Mg/0.8 Ml Syringe) 120 mg SQ BID [facility] Last Admin: 01/04/22 20:54 Dose: 120 mg Documented by: Fenofibrate (Fenofibrate 43 Mg Capsule) 43 mg PO HS [facility] Last Admin: 01/04/22 20:54 Dose: 43 mg Documented by: Gabapentin (Gabapentin 100 Mg Capsule) 100 mg PO TID [facility] Last Admin: 01/04/22 20:54 Dose: 100 mg Documented by: Lactulose (Lactulose 20 Gm/30 Ml Oral.Kym) 10 gm PO DAILYP PRN PRN Reason: Constipation Latanoprost (Latanoprost Ophth Drops 2.5ml Bottle) 1 gtt OU BID [facility] Last Admin: 01/04/22 20:56 Dose: 1 gtt Documented by: Ondansetron HCl (Ondansetron 4 Mg/2 Ml Vial) 4 mg IV Q4HP PRN; Protocol PRN Reason: Nausea And Vomiting Last Admin: 01/03/22 07:22 Dose: 4 mg Documented by: Polyethylene Glycol (Polyethylene Glycol 3350 17 Gm Packet) 17 gm PO DAILYP PRN PRN Reason: Constipation Last Admin: 01/03/22 18:44 Dose: 17 gm Documented by: Senna (Sennosides 1 Tablet) 2 tab PO HSP PRN PRN Reason: Constipation Sodium Chloride (0.9 % Sodium Chloride 10 Ml Syringe) 10 ml IV Q8 [facility] Last Admin: 01/05/22 05:27 Dose: 10 ml Documented by: Timolol Maleate (Timolol 0.25% Ophth Drops Bottle 5ml) 1 gtt OU BID [facility] Last Admin: 01/04/22 20:55 Dose: Not Given Documented by: ABG Interpretation ABG results: 01/01/22 01/03/22 19:02 10:08 ABG Methemoglobin 0.3 L 0.3 L VBG pH 7.45 H 7.40 VBG pCO2 46.4 56.1 H VBG pO2 92.1 H 156.2 H VBG HCO3 31.2 H 33.8 H VBG Total CO2 32.6 H 35.5 H VBG O2 Saturation 87.4 H 92.6 H VBG Base Excess 6 H 7 H A/P Narrative A/P Narrative: A: #Acute on chronic hypoxic/hypercapnic respiratory failure: 2/2 PE + chronic component -on vapotherm/bipap #Pulmonary embolism w/mild RV stain: hemodynamically stable #Probable obesity hypoventilation syndrome: #Suspected HALIMA: #Obesity: BMI 40 #JUANA: Resolved #Right 2.5 cm breast mass -Not new according to the patient #Essential hypertension / Hyperlipidemia: #Recurrent UTIs on suppressive cephalexin #h/o vitamin B12 deficiency/macrocytosis: #Hematoma/mass adjacent to right atrium and right ventricle Plan: -Lovenox BID. transition to eliquis -Oxygen supplementation, currently requiring HHFNC & bipap at night -Carbajal catheter for accurate urine output, remove when able. -Hold lasix for now due to low BP., hold norvasc/ARB for low bp -Outpatient mammogram and breast ultrasound if within the patient's goals of care. -PT consult. -Goals of care: Patient is leaning towards hospice at home, if unable to go home due to high oxygen requirements then possibly comfort cares in the hospital. -Disposition: The patient is considering hospice/comfort care. -ppx: eliquis CODE STATUS: DNR/DNI Time Spent With Patient Time: Total time spent is greater than 50% in coordination of care (as documented) at patient's floor/unit and/or counseling patient:
[2022-01-05] MEDS: CALCIUM W/VIT D3 500 MG TABLET PO SCH (08:34)
[2022-01-05] MEDS: TIMOLOL 0.25% OPHTH DROPS BOTTLE 5ML OU SCH ×2 (08:34→21:43)
[2022-01-05] MEDS: APIXABAN 5 MG TABLET PO SCH ×2 (08:34→20:39)
[2022-01-05] MEDS: GABAPENTIN 100 MG CAPSULE PO SCH ×3 (08:34→20:39)
[2022-01-05] MEDS: DOCUSATE SODIUM 100 MG CAPSULE PO SCH ×2 (08:34→20:39)
[2022-01-05] MEDS: CYANOCOBALAMIN 1,000 MCG/ML VIAL IM SCH (08:35)
[2022-01-05] MEDS: LATANOPROST OPHTH DROPS 2.5ML BOTTLE OU SCH ×2 (08:35→21:43)
[2022-01-05] MEDS: HYDROcodone/APAP 5/325MG TABLET PO PRN (10:31)
[2022-01-05] MEDS: ATORVASTATIN 40 MG TABLET PO SCH (20:39)
[2022-01-05] MEDS: FENOFIBRATE 43 MG CAPSULE PO SCH (20:45)
[2022-01-05] MEDS: CEPHALEXIN 250 MG CAPSULE PO SCH (20:45)
[2022-01-06] MEDS: IPRATROPIUM/ALBUTEROL 3 ML AMPUL.NEB NEB SCH ×4 (00:53→19:00)
[2022-01-06] MEDS: ACETAMINOPHEN 325 MG TABLET PO PRN (05:49)
[2022-01-06] MEDS: 0.9 % SODIUM CHLORIDE 10 ML SYRINGE IV SCH ×3 (05:57→20:41)
--- NOTE | 2022-01-06 07:38 | Internal Med Progress Note ---
SUBJECTIVE Subjective Patient information: Note initiated : 01/06/22 at 7:37 am Service Date, if different from initiated Date: [] Patient: Amarilis Medellin 81 y/o F admitted on 01/01/22 for SOB, hypoxia. Chief Complaint: [] Interval history: Ms. Miranda Merrill is a 81 year old female with a history of hypertension, hyperlipidemia, recurrent UTIs on suppressive cephalexin, macular degeneration, chronic hypoxia on home oxygen 2 L/min recently diagnosed heart failure with preserved ejection fraction who presented to the emergency department for a chief complaint of shortness of breath and worsening hypoxia. She says that she was diagnosed with congestive heart failure in the last couple months and started on oral Lasix. Since that time she has been struggling with shortness of breath, especially while lying flat. In the ED, the patient was found to be severely hypoxic. ABG was done and in addition to hypoxemia showed a pH of 7.28 and PCO2 of 77 consistent with respiratory acidosis. ABG bicarbonate level was 36.2. This suggests a chronic respiratory acidosis. The patient does not have a known history of obstructive lung disease. Chest x-ray was consistent with pulmonary vascular congestion. Routine lab work with CBC, CMP, cardiac enzymes was most impressive for a NT proBNP of almost 8000. Troponin was normal. EKG did not show any acute ischemic changes. Creatinine was 1.3, up from the patient's baseline of about 0.8. The patient was started on BiPAP with supplemental oxygen and given a dose of Lasix 40 mg IV. Hospital medicine was consulted for admission. Review of the recent transthoracic echocardiogram rev eals an estimated LVEF of 70%, a moderately dilated right ventricle with mildly reduced right ventricular systolic function. Pulmonary artery pressure estimation was not possible. Additionally, there was comment of a hematoma/mass seen in the pericardial space adjacent to the right atrium and right ventricle as well as a small to moderate pericardial effusion. When I evaluated the patient in the ED, she was on BiPAP and appeared to be breathing comfortably. We discussed the plan of care and her goals of care. The patient wishes to be DNR/DNI. 01/02 Renal function improved, continues on BiPAP, started lasix 40 mg IV BID. Goals of care discussion with son at bedside, goal is to get the patient stable enough to go home and consider hospice at home. D-dimer mildly elevated, discussed CTA chest with the patient, she declined further evaluation for pulmonary embolism. ECHO report pending. Vitamin B12 level 246, started vitamin B12 IM supplement. 01/03 The patient continues on high flow nasal canula, had low blood pressure this morning and tachycardia. Reviewed the possibility of a pulmonary embolism again, the patient agreed to a CTA chest today. The CTA chest was positive for a pu lmonary embolism, also noted was a 2.5 cm cm right breast mass. Therapeutic Lovenox was started for anticoagulation. Lasix was discontinued. 01/04 Transition to [facility], the patient continues to required high FiO2. Blood pressure low normal, TTE report showed borderline reduced right ventricular systolic function. Discussed the option of thrombolytic therapy, the patient wants to think about it but leaning towards no further intervention and comfort cares. She will discuss it further with her family. On therapeutic Lovenox twice daily. 01/05 Still requiring high fraction of inspired oxygen. Patient has occasional cough but denies shortness of breath at rest while on breathing device. Family meeting today. 01/06 Patient feeling little better today. Sitting up in chair having breakfast with family. Gradually weaning down FiO2. Family discussion yesterday about her condition and gradual improvement. Review of Systems: denies headache/fever/chills/nausea/vomiting/chest or abdominal pain/diarrhea. Otherwise see above. Constitutional Vitals: Vital Signs Temp Pulse Resp BP Pulse Ox 97.3 F 80 16 121/76 95 01/06/22 00:00 01/06/22 06:25 01/06/22 06:25 01/06/22 06:00 01/06/22 06:25 Period Temp Pulse Resp BP Sys/Camara Pulse Ox Last 24 Hr 96.9 F-98.4 F 73-91 12-36 98-133/51-86 86-97 Intake and Output 01/05/22 01/06/22 01/06/22 21:59 05:59 13:59 Output Total 350 550 250 Balance -350 -550 -250 Weight 114.475 kg Intake & Output: Intake & Output 01/05/22 01/06/22 01/06/22 21:59 05:59 13:59 Output Total 350 550 250 Balance -350 -550 -250 Weight 114.475 kg Output: Urine Catheter Amount 350 550 250 Other: Urine Appearance Clear Clear Clear Urine Color Straw Dark Yellow Light [place] Urine Odor Normal Normal Exam: General: Alert, Awake, No acute Distress, obese Eyes/N/T: EOMI, Head/Neck: neck supple, CV: RRR, No murmurs, Pulm: mild bibase rales b/l, no wheezing Abd: soft, nontender, +BS x4 Ext: no clubbing/cyanosis, b/l mild trace edema Neuro: Alert, no focal deficits, moves all extremities, Skin: warm/dry OBJ DATA Labs CBC & Chem 7: 01/04/22 05:15 01/06/22 05:18 Labs: Abnormal Lab Results 01/05/22 01/04/22 01/04/22 05:14 05:15 05:15 MCV 102.0 H RBC Morphology Abnormal A Macrocytosis 1+ A ABG Methemoglobin VBG pCO2 VBG pO2 VBG HCO3 VBG Total CO2 VBG O2 Saturation VBG Base Excess Carboxyhemoglobin Chloride 95 L 94 L Carbon Dioxide 32 H 33 H BUN 36 H 37 H Alkaline Phosphatase 32 L 33 L Total Protein 5.5 L 5.8 L Albumin 3.0 L 01/03/22 10:08 MCV RBC Morphology Macrocytosis ABG Methemoglobin 0.3 L VBG pCO2 56.1 H VBG pO2 156.2 H VBG HCO3 33.8 H VBG Total CO2 35.5 H VBG O2 Saturation 92.6 H VBG Base Excess 7 H Carboxyhemoglobin 6.2 H Chloride Carbon Dioxide BUN Alkaline Phosphatase Total Protein Albumin Meds: Medications Acetaminophen (Acetaminophen 325 Mg Tablet) 650 mg PO Q6HP PRN; Protocol PRN Reason: Per Pain Protocol/Fever > 101 Last Admin: 01/06/22 05:49 Dose: 650 mg Documented by: Hydrocodone Bitart/Acetaminophen (Hydrocodone/Apap 5/325mg Tablet) 1 tab PO Q4HP PRN; Protocol PRN Reason: Per Pain Protocol Last Admin: 01/05/22 10:31 Dose: 1 tab Documented by: Albuterol Sulfate (Albuterol Sulfate 2.5 Mg/3 Ml Nebulizer) 2.5 mg NEB Q2HP PRN PRN Reason: Shortness Of Breath Albuterol/Ipratropium (Ipratropium/Albuterol 3 Ml Ampul.Neb) 3 ml NEB Q6HRT REPLACED BY [facility] Last Admin: 01/06/22 00:53 Dose: 3 ml Documented by: Apixaban (Apixaban 5 Mg Tablet) 10 mg PO BID REPLACED BY [facility] Last Admin: 01/05/22 20:39 Dose: 10 mg Documented by: Atorvastatin Calcium (Atorvastatin 40 Mg Tablet) 40 mg PO [facility] Last Admin: 01/05/22 20:39 Dose: 40 mg Documented by: Calcium/Vitamin D (Calcium W/Vit D3 500 Mg Tablet) 500 mg PO DAILY REPLACED BY [facility] Last Admin: 01/05/22 08:34 Dose: 500 mg Documented by: Cephalexin HCl (Cephalexin 250 Mg Capsule) 250 mg PO HS REPLACED BY [facility]; Protocol Last Admin: 01/05/22 20:45 Dose: 250 mg Documented by: Cyanocobalamin (Cyanocobalamin 1,000 Mcg/Ml Vial) 1,000 mcg IM DAILY [facility]PLACED BY [facility] Stop: 01/09/22 16:09 Last Admin: 01/05/22 08:35 Dose: 1,000 mcg Documented by: Docusate Sodium (Docusate Sodium 100 Mg Capsule) 100 mg PO BID REPL[facility]ED BY [facility] Last Admin: 01/05/22 20:39 Dose: 100 mg Documented by: Fenofibrate (Fenofibrate 43 Mg Capsule) 43 mg PO [facility] Last Admin: 01/05/22 20:45 Dose: 43 mg Documented by: Gabapentin (Gabapentin 100 Mg Capsule) 100 mg PO TID REPLACED BY [facility] Last Admin: 01/05/22 20:39 Dose: 100 mg Documented by: Lactulose (Lactulose 20 Gm/30 Ml Oral.Kym) 10 gm PO DAILYP PRN PRN Reason: Constipation Latanoprost (Latanoprost Ophth Drops 2.5ml Bottle) 1 gtt OU BID REPLACED BY [facility] Last Admin: 01/05/22 21:43 Dose: Not Given Documented by: Ondansetron HCl (Ondansetron 4 Mg/2 Ml Vial) 4 mg IV Q4HP PRN; Protocol PRN Reason: Nausea And Vomiting Last Admin: 01/03/22 07:22 Dose: 4 mg Documented by: Polyethylene Glycol (Polyethylene Glycol 3350 17 Gm Packet) 17 gm PO DAILYP PRN PRN Reason: Constipation Last Admin: 01/03/22 18:44 Dose: 17 gm Documented by: Senna (Sennosides 1 Tablet) 2 tab PO HSP PRN PRN Reason: Constipation Sodium Chloride (0.9 % Sodium Chloride 10 Ml Syringe) 10 ml IV Q8 REPLACED BY [facility] Last Admin: 01/06/22 05:57 Dose: 10 ml Documented by: Timolol Maleate (Timolol 0.25% Ophth Drops Bottle 5ml) 1 gtt OU BID REPLACED BY [facility] Last Admin: 01/05/22 21:43 Dose: Not Given Documented by: ABG Interpretation ABG results: 01/01/22 01/03/22 19:02 10:08 ABG Methemoglobin 0.3 L 0.3 L VBG pH 7.45 H 7.40 VBG pCO2 46.4 56.1 H VBG pO2 92.1 H 156.2 H VBG HCO3 31.2 H 33.8 H VBG Total CO2 32.6 H 35.5 H VBG O2 Saturation 87.4 H 92.6 H VBG Base Excess 6 H 7 H A/P Narrative A/P Narrative: A: #Acute on chronic hypoxic/hypercapnic respiratory failure: 2/2 PE + chronic component -on vapotherm down to 55%, cpap at night #Pulmonary embolism w/mild RV stain: hemodynamically stable #Probable obesity hypoventilation syndrome: #Suspected HALIMA: #Obesity: BMI 40 #JUANA: Resolved #Right 2.5 cm breast mass -Not new according to the patient #Essential hypertension / Hyperlipidemia: #Recurrent UTIs on suppressive cephalexin #h/o vitamin B12 deficiency/macrocytosis: #Hematoma/mass adjacent to right atrium and right ventricle Plan: -eliquis -Oxygen supplementation, currently requiring HHFNC -nocturnal cpap -Carbajal catheter for accurate urine output, remove when able. -PT consult -CM for placement when ready. -Outpatient mammogram and breast ultrasound if within the patient's goals of care. -f/u echo outpt regarding pericardial mass, per read could be adipose tissue,hematoma,etc.. -f/u with pulmonolgy for sleep study -ppx: eliquis CODE STATUS: DNR/DNI Time Spent With Patient Time: Total time spent is greater than 50% in coordination of care (as documented) at patient's floor/unit and/or counseling patient:
[2022-01-06 08:12] LABS: ALT/SGPT 12 U/L (<40); AST/SGOT 17 U/L (<32); Albumin 3.1 gm/dL (3.2-5.2); Albumin/Globulin Ratio 1.2 (1.0-2.3); Alkaline Phosphatase 32 U/L (39-117); Bilirubin,Direct < 0.2 mg/dL (0-0.3); Bilirubin,Total 0.2 mg/dL (0.1-1.0); Blood Urea Nitrogen 27 mg/dL (8-23); Calcium 9.4 mg/dL (8.6-10.4); Carbon Dioxide 33 mmol/L (22-30); Chloride 99 mmol/L (96-108); Globulin 2.6 gm/dL (2.2-3.7); Glomerular Filtration Rate 80; Glucose 101 mg/dL (70-105); Lactate Dehydrogenase 212 U/L (135-225); Phosphorous 3.2 mg/dL (2.5-4.5); Triglycerides 133 mg/dL (<150); Uric Acid 6.2 mg/dL (2.5-8.0)
[2022-01-06] MEDS ORDERED: FUROSEMIDE 40 MG/4 ML VIAL IV ONE (08:57)
[2022-01-06] MEDS ORDERED: ALBUMIN HUMAN 12.5 GM/50 ML BAG IV ONE (08:57)
[2022-01-06] MEDS: CALCIUM W/VIT D3 500 MG TABLET PO SCH (08:58)
[2022-01-06] MEDS: GABAPENTIN 100 MG CAPSULE PO SCH ×3 (08:58→20:45)
[2022-01-06] MEDS: APIXABAN 5 MG TABLET PO SCH ×2 (08:58→20:44)
[2022-01-06] MEDS: CYANOCOBALAMIN 1,000 MCG/ML VIAL IM SCH (08:58)
[2022-01-06] MEDS: DOCUSATE SODIUM 100 MG CAPSULE PO SCH ×2 (08:58→20:45)
[2022-01-06] MEDS: TIMOLOL 0.25% OPHTH DROPS BOTTLE 5ML OU SCH ×2 (08:58→20:40)
[2022-01-06] MEDS: LATANOPROST OPHTH DROPS 2.5ML BOTTLE OU SCH ×2 (08:59→20:41)
[2022-01-06] MEDS ORDERED: CYANOCOBALAMIN (VITAMIN B-12) 1,000 MCG TABLET PO SCH (09:00)
[2022-01-06] MEDS: HYDROcodone/APAP 5/325MG TABLET PO PRN (13:38)
[2022-01-06] MEDS: CEPHALEXIN 250 MG CAPSULE PO SCH (20:44)
[2022-01-06] MEDS: FENOFIBRATE 43 MG CAPSULE PO SCH (20:44)
[2022-01-06] MEDS: ATORVASTATIN 40 MG TABLET PO SCH (20:45)
[2022-01-07] MEDS: IPRATROPIUM/ALBUTEROL 3 ML AMPUL.NEB NEB SCH ×4 (01:44→19:01)
[2022-01-07] MEDS: 0.9 % SODIUM CHLORIDE 10 ML SYRINGE IV SCH ×3 (05:57→20:50)
--- NOTE | 2022-01-07 08:00 | Internal Med Progress Note ---
SUBJECTIVE Subjective Patient information: Note initiated : 01/07/22 at 7:58 am Service Date, if different from initiated Date: [] Patient: Amarilis Medellin 81 y/o F admitted on 01/01/22 for SOB, hypoxia. Chief Complaint: [] Interval history: Ms. Miranda Merrill is a 81 year old female with a history of hypertension, hyperlipidemia, recurrent UTIs on suppressive cephalexin, macular degeneration, chronic hypoxia on home oxygen 2 L/min recently diagnosed heart failure with preserved ejection fraction who presented to the emergency department for a chief complaint of shortness of breath and worsening hypoxia. She says that she was diagnosed with congestive heart failure in the last couple months and started on oral Lasix. Since that time she has been struggling with shortness of breath, especially while lying flat. In the ED, the patient was found to be severely hypoxic. ABG was done and in addition to hypoxemia showed a pH of 7.28 and PCO2 of 77 consistent with respiratory acidosis. ABG bicarbonate level was 36.2. This suggests a chronic respiratory acidosis. The patient does not have a known history of obstructive lung disease. Chest x-ray was consistent with pulmonary vascular congestion. Routine lab work with CBC, CMP, cardiac enzymes was most impressive for a NT proBNP of almost 8000. Troponin was normal. EKG did not show any acute ischemic changes. Creatinine was 1.3, up from the patient's baseline of about 0.8. The patient was started on BiPAP with supplemental oxygen and given a dose of Lasix 40 mg IV. Hospital medicine was consulted for admission. Review of the recent transthoracic echocardiogram rev eals an estimated LVEF of 70%, a moderately dilated right ventricle with mildly reduced right ventricular systolic function. Pulmonary artery pressure estimation was not possible. Additionally, there was comment of a hematoma/mass seen in the pericardial space adjacent to the right atrium and right ventricle as well as a small to moderate pericardial effusion. When I evaluated the patient in the ED, she was on BiPAP and appeared to be breathing comfortably. We discussed the plan of care and her goals of care. The patient wishes to be DNR/DNI. 01/02 Renal function improved, continues on BiPAP, started lasix 40 mg IV BID. Goals of care discussion with son at bedside, goal is to get the patient stable enough to go home and consider hospice at home. D-dimer mildly elevated, discussed CTA chest with the patient, she declined further evaluation for pulmonary embolism. ECHO report pending. Vitamin B12 level 246, started vitamin B12 IM supplement. 01/03 The patient continues on high flow nasal canula, had low blood pressure this morning and tachycardia. Reviewed the possibility of a pulmonary embolism again, the patient agreed to a CTA chest today. The CTA chest was positive for a pu lmonary embolism, also noted was a 2.5 cm cm right breast mass. Therapeutic Lovenox was started for anticoagulation. Lasix was discontinued. 01/04 Transition to [facility], the patient continues to required high FiO2. Blood pressure low normal, TTE report showed borderline reduced right ventricular systolic function. Discussed the option of thrombolytic therapy, the patient wants to think about it but leaning towards no further intervention and comfort cares. She will discuss it further with her family. On therapeutic Lovenox twice daily. 01/05 Still requiring high fraction of inspired oxygen. Patient has occasional cough but denies shortness of breath at rest while on breathing device. Family meeting today. 01/06 Patient feeling little better today. Sitting up in chair having breakfast with family. Gradually weaning down FiO2. Family discussion yesterday about her condition and gradual improvement. 01/07 Continues to feel a bit better. No shortness of breath at rest occasional cough. FiO2 requirement gradually improving. Review of Systems: denies headache/fever/chills/nausea/vomiting/chest or abdominal pain/diarrhea. Otherwise see above. Constitutional Vitals: Vital Signs Temp Pulse Resp BP Pulse Ox 97.2 F 77 20 134/69 97 01/07/22 04:01 01/07/22 07:50 01/07/22 07:50 01/07/22 06:02 01/07/22 07:50 Period Temp Pulse Resp BP Sys/Camara Pulse Ox Last 24 Hr 97 F-98.5 F 74-90 12-32 102-140/56-105 85-98 Intake and Output 01/06/22 01/07/22 01/07/22 21:59 05:59 13:59 Intake Total 240 200 Output Total 1175 600 Balance -935 -400 Weight 114.078 kg Intake & Output: Intake & Output 01/06/22 01/07/22 01/07/22 21:59 05:59 13:59 Intake Total 240 200 Output Total 1175 600 Balance -935 -400 Weight 114.078 kg Intake: Oral 240 200 Output: Urine Catheter Amount 1175 600 Other: Urine Appearance Clear Clear Uretheral (Carbajal) Clear Urine Color Bright Yellow Pale Uretheral (Carbajal) Pale Urine Odor Normal Normal Exam: General: Alert, Awake, No acute Distress, obese Eyes/N/T: EOMI, Head/Neck: neck supple, CV: RRR, No murmurs, Pulm: mild bibase rales b/l, no wheezing Abd: soft, nontender, +BS x4 Ext: no clubbing/cyanosis, b/l mild trace edema Neuro: Alert, no focal deficits, moves all extremities, Skin: warm/dry OBJ DATA Labs CBC & Chem 7: 01/04/22 05:15 01/06/22 05:18 Labs: Abnormal Lab Results 01/06/22 01/05/22 01/04/22 05:18 05:14 05:15 RBC Morphology Abnormal A Macrocytosis 1+ A Chloride 95 L Carbon Dioxide 33 H 32 H BUN 27 H 36 H Alkaline Phosphatase 32 L 32 L Total Protein 5.7 L 5.5 L Albumin 3.1 L 3.0 L Meds: Medications Acetaminophen (Acetaminophen 325 Mg Tablet) 650 mg PO Q6HP PRN; Protocol PRN Reason: Per Pain Protocol/Fever > 101 Last Admin: 01/06/22 05:49 Dose: 650 mg Documented by: Hydrocodone Bitart/Acetaminophen (Hydrocodone/Apap 5/325mg Tablet) 1 tab PO Q4HP PRN; Protocol PRN Reason: Per Pain Protocol Last Admin: 01/06/22 13:38 Dose: 1 tab Documented by: Albuterol Sulfate (Albuterol Sulfate 2.5 Mg/3 Ml Nebulizer) 2.5 mg NEB Q2HP PRN PRN Reason: Shortness Of Breath Albuterol/Ipratropium (Ipratropium/Albuterol 3 Ml Ampul.Neb) 3 ml NEB Q6HRT [facility] Last Admin: 01/07/22 07:35 Dose: 3 ml Documented by: Apixaban (Apixaban 5 Mg Tablet) 10 mg PO BID [facility] Last Admin: 01/06/22 20:44 Dose: 10 mg Documented by: Atorvastatin Calcium (Atorvastatin 40 Mg Tablet) 40 mg PO HS [facility] Last Admin: 01/06/22 20:45 Dose: 40 mg Documented by: Calcium/Vitamin D (Calcium W/Vit D3 500 Mg Tablet) 500 mg PO DAILY [facility] Last Admin: 01/06/22 08:58 Dose: 500 mg Documented by: Cephalexin HCl (Cephalexin 250 Mg Capsule) 250 mg PO [facility]; Protocol Last Admin: 01/06/22 20:44 Dose: 250 mg Documented by: Cyanocobalamin (Cyanocobalamin 1,000 Mcg/Ml Vial) 1,000 mcg IM DAILY [facility] Stop: 01/09/22 16:09 Last Admin: 01/06/22 08:58 Dose: 1,000 mcg Documented by: Docusate Sodium (Docusate Sodium 100 Mg Capsule) 100 mg PO BID [facility] Last Admin: 01/06/22 20:45 Dose: 100 mg Documented by: Fenofibrate (Fenofibrate 43 Mg Capsule) 43 mg PO [facility] Last Admin: 01/06/22 20:44 Dose: 43 mg Documented by: Gabapentin (Gabapentin 100 Mg Capsule) 100 mg PO TID [facility] Last Admin: 01/06/22 20:45 Dose: 100 mg Documented by: Lactulose (Lactulose 20 Gm/30 Ml Oral.Kym) 10 gm PO DAILYP PRN PRN Reason: Constipation Latanoprost (Latanoprost Ophth Drops 2.5ml Bottle) 1 gtt OU BID [facility] Last Admin: 01/06/22 20:41 Dose: Not Given Documented by: Ondansetron HCl (Ondansetron 4 Mg/2 Ml Vial) 4 mg IV Q4HP PRN; Protocol PRN Reason: Nausea And Vomiting Last Admin: 01/03/22 07:22 Dose: 4 mg Documented by: Polyethylene Glycol (Polyethylene Glycol 3350 17 Gm Packet) 17 gm PO DAILYP PRN PRN Reason: Constipation Last Admin: 01/03/22 18:44 Dose: 17 gm Documented by: Senna (Sennosides 1 Tablet) 2 tab PO HSP PRN PRN Reason: Constipation Sodium Chloride (0.9 % Sodium Chloride 10 Ml Syringe) 10 ml IV Q8 [facility] Last Admin: 01/07/22 05:57 Dose: 10 ml Documented by: Timolol Maleate (Timolol 0.25% Ophth Drops Bottle 5ml) 1 gtt OU BID [facility] Last Admin: 01/06/22 20:40 Dose: 1 gtt Documented by: ABG Interpretation ABG results: 01/01/22 01/03/22 19:02 10:08 ABG Methemoglobin 0.3 L 0.3 L VBG pH 7.45 H 7.40 VBG pCO2 46.4 56.1 H VBG pO2 92.1 H 156.2 H VBG HCO3 31.2 H 33.8 H VBG Total CO2 32.6 H 35.5 H VBG O2 Saturation 87.4 H 92.6 H VBG Base Excess 6 H 7 H A/P Narrative A/P Narrative: A: #Acute on chronic hypoxic/hypercapnic respiratory failure: 2/2 PE + chronic component -on vapotherm down to 25lpm/40%, cpap at night #Pulmonary embolism w/mild RV stain: hemodynamically stable #Probable obesity hypoventilation syndrome: #Suspected HALIMA: #Obesity: BMI 40 #JUANA: Resolved #Right 2.5 cm breast mass -Not new according to the patient #Essential hypertension / Hyperlipidemia: #Recurrent UTIs on suppressive cephalexin #h/o vitamin B12 deficiency/macrocytosis: #Hematoma/mass adjacent to right atrium and right ventricle Plan: -eliquis -Oxygen supplementation, currently requiring HHFNC -nocturnal cpap -PT consult -CM for placement when ready. -Outpatient mammogram and breast ultrasound if within the patient's goals of care. -f/u echo outpt regarding pericardial mass, per read by rads could be adipose tissue,hematoma,etc.. -f/u with pulmonology for sleep study -ppx: eliquis CODE STATUS: DNR/DNI Time Spent With Patient Time: Total time spent is greater than 50% in coordination of care (as documented) at patient's floor/unit and/or counseling patient:
[2022-01-07] MEDS: APIXABAN 5 MG TABLET PO SCH ×2 (09:28→20:51)
[2022-01-07] MEDS: GABAPENTIN 100 MG CAPSULE PO SCH ×3 (09:28→20:50)
[2022-01-07] MEDS: CALCIUM W/VIT D3 500 MG TABLET PO SCH (09:28)
[2022-01-07] MEDS: DOCUSATE SODIUM 100 MG CAPSULE PO SCH ×2 (09:28→20:50)
[2022-01-07] MEDS: CYANOCOBALAMIN 1,000 MCG/ML VIAL IM SCH (09:28)
[2022-01-07] MEDS: LATANOPROST OPHTH DROPS 2.5ML BOTTLE OU SCH ×2 (09:54→20:42)
[2022-01-07] MEDS: TIMOLOL 0.25% OPHTH DROPS BOTTLE 5ML OU SCH ×2 (09:54→20:52)
[2022-01-07] MEDS: ACETAMINOPHEN 325 MG TABLET PO PRN (16:10)
[2022-01-07] MEDS: CEPHALEXIN 250 MG CAPSULE PO SCH (20:51)
[2022-01-07] MEDS: ATORVASTATIN 40 MG TABLET PO SCH (20:51)
[2022-01-07] MEDS: FENOFIBRATE 43 MG CAPSULE PO SCH (20:51)
[2022-01-08] MEDS: IPRATROPIUM/ALBUTEROL 3 ML AMPUL.NEB NEB SCH ×4 (01:59→19:10)
[2022-01-08] MEDS: ACETAMINOPHEN 325 MG TABLET PO PRN ×3 (03:18→20:03)
[2022-01-08] MEDS: 0.9 % SODIUM CHLORIDE 10 ML SYRINGE IV SCH ×3 (05:34→20:04)
--- NOTE | 2022-01-08 07:49 | Internal Med Progress Note ---
SUBJECTIVE Subjective Patient information: Note initiated : 01/08/22 at 7:48 am Service Date, if different from initiated Date: [] Patient: Amarilis Medellin 81 y/o F admitted on 01/01/22 for SOB, hypoxia. Chief Complaint: [] Interval history: Ms. Miranda Merrill is a 81 year old female with a history of hypertension, hyperlipidemia, recurrent UTIs on suppressive cephalexin, macular degeneration, chronic hypoxia on home oxygen 2 L/min recently diagnosed heart failure with preserved ejection fraction who presented to the emergency department for a chief complaint of shortness of breath and worsening hypoxia. She says that she was diagnosed with congestive heart failure in the last couple months and started on oral Lasix. Since that time she has been struggling with shortness of breath, especially while lying flat. In the ED, the patient was found to be severely hypoxic. ABG was done and in addition to hypoxemia showed a pH of 7.28 and PCO2 of 77 consistent with respiratory acidosis. ABG bicarbonate level was 36.2. This suggests a chronic respiratory acidosis. The patient does not have a known history of obstructive lung disease. Chest x-ray was consistent with pulmonary vascular congestion. Routine lab work with CBC, CMP, cardiac enzymes was most impressive for a NT proBNP of almost 8000. Troponin was normal. EKG did not show any acute ischemic changes. Creatinine was 1.3, up from the patient's baseline of about 0.8. The patient was started on BiPAP with supplemental oxygen and given a dose of Lasix 40 mg IV. Hospital medicine was consulted for admission. Review of the recent transthoracic echocardiogram rev eals an estimated LVEF of 70%, a moderately dilated right ventricle with mildly reduced right ventricular systolic function. Pulmonary artery pressure estimation was not possible. Additionally, there was comment of a hematoma/mass seen in the pericardial space adjacent to the right atrium and right ventricle as well as a small to moderate pericardial effusion. When I evaluated the patient in the ED, she was on BiPAP and appeared to be breathing comfortably. We discussed the plan of care and her goals of care. The patient wishes to be DNR/DNI. 01/02 Renal function improved, continues on BiPAP, started lasix 40 mg IV BID. Goals of care discussion with son at bedside, goal is to get the patient stable enough to go home and consider hospice at home. D-dimer mildly elevated, discussed CTA chest with the patient, she declined further evaluation for pulmonary embolism. ECHO report pending. Vitamin B12 level 246, started vitamin B12 IM supplement. 01/03 The patient continues on high flow nasal canula, had low blood pressure this morning and tachycardia. Reviewed the possibility of a pulmonary embolism again, the patient agreed to a CTA chest today. The CTA chest was positive for a pu lmonary embolism, also noted was a 2.5 cm cm right breast mass. Therapeutic Lovenox was started for anticoagulation. Lasix was discontinued. 01/04 Transition to [facility], the patient continues to required high FiO2. Blood pressure low normal, TTE report showed borderline reduced right ventricular systolic function. Discussed the option of thrombolytic therapy, the patient wants to think about it but leaning towards no further intervention and comfort cares. She will discuss it further with her family. On therapeutic Lovenox twice daily. 01/05 Still requiring high fraction of inspired oxygen. Patient has occasional cough but denies shortness of breath at rest while on breathing device. Family meeting today. 01/06 Patient feeling little better today. Sitting up in chair having breakfast with family. Gradually weaning down FiO2. Family discussion yesterday about her condition and gradual improvement. 01/07 Continues to feel a bit better. No shortness of breath at rest occasional cough. FiO2 requirement gradually improving. 01/08 Patient continues to make slow but gradual improvement. No overnight event or new complaints. On 40% FiO2. Review of Systems: denies headache/fever/chills/nausea/vomiting/chest or abdominal pain/diarrhea. Otherwise see above. Constitutional Vitals: Vital Signs Temp Pulse Resp BP Pulse Ox 98.4 F 84 22 123/63 96 01/08/22 04:01 01/08/22 07:47 01/08/22 07:47 01/08/22 06:01 01/08/22 07:47 Period Temp Pulse Resp BP Sys/Camara Pulse Ox Last 24 Hr 97.3 F-98.8 F 77-95 13-35 98-142/60-100 85-98 Intake and Output 01/07/22 01/08/22 01/08/22 21:59 05:59 13:59 Intake Total 600 100 Output Total 675 175 Balance -75 -75 Weight 113.455 kg Intake & Output: Intake & Output 01/07/22 01/08/22 01/08/22 21:59 05:59 13:59 Intake Total 600 100 Output Total 675 175 Balance -75 -75 Weight 113.455 kg Intake: Oral 600 100 Output: Void Amount 675 175 Other: Meal Dinner Percent of Meal Consumed 100% Urine Appearance Clear Urine Color Dark Yellow Urine Odor Normal Exam: General: Alert, Awake, No acute Distress, obese Eyes/N/T: EOMI, Head/Neck: neck supple, CV: RRR, No murmurs, Pulm: minimal bibase rales b/l improved, no wheezing Abd: soft, nontender, +BS x4 Ext: no clubbing/cyanosis, b/l mild trace edema Neuro: Alert, no focal deficits, moves all extremities, Skin: warm/dry OBJ DATA Labs CBC & Chem 7: 01/04/22 05:15 01/06/22 05:18 Labs: Abnormal Lab Results 01/06/22 05:18 Carbon Dioxide 33 H BUN 27 H Alkaline Phosphatase 32 L Total Protein 5.7 L Albumin 3.1 L Meds: Medications Acetaminophen (Acetaminophen 325 Mg Tablet) 650 mg PO Q6HP PRN; Protocol PRN Reason: Per Pain Protocol/Fever > 101 Last Admin: 01/08/22 03:18 Dose: 650 mg Documented by: Hydrocodone Bitart/Acetaminophen (Hydrocodone/Apap 5/325mg Tablet) 1 tab PO Q4HP PRN; Protocol PRN Reason: Per Pain Protocol Last Admin: 01/06/22 13:38 Dose: 1 tab Documented by: Albuterol Sulfate (Albuterol Sulfate 2.5 Mg/3 Ml Nebulizer) 2.5 mg NEB Q2HP PRN PRN Reason: Shortness Of Breath Last Admin: 01/08/22 05:24 Dose: 2.5 mg Documented by: Albuterol/Ipratropium (Ipratropium/Albuterol 3 Ml Ampul.Neb) 3 ml NEB Q6HRT [facility] Last Admin: 01/08/22 07:40 Dose: 3 ml Documented by: Apixaban (Apixaban 5 Mg Tablet) 10 mg PO BID [facility] Last Admin: 01/07/22 20:51 Dose: 10 mg Documented by: Atorvastatin Calcium (Atorvastatin 40 Mg Tablet) 40 mg PO HS [facility] Last Admin: 01/07/22 20:51 Dose: 40 mg Documented by: Calcium/Vitamin D (Calcium W/Vit D3 500 Mg Tablet) 500 mg PO DAILY [facility] Last Admin: 01/07/22 09:28 Dose: 500 mg Documented by: Cephalexin HCl (Cephalexin 250 Mg Capsule) 250 mg PO [facility]; Protocol Last Admin: 01/07/22 20:51 Dose: 250 mg Documented by: Cyanocobalamin (Cyanocobalamin 1,000 Mcg/Ml Vial) 1,000 mcg IM DAILY [facility] Stop: 01/09/22 16:09 Last Admin: 01/07/22 09:28 Dose: 1,000 mcg Documented by: Docusate Sodium (Docusate Sodium 100 Mg Capsule) 100 mg PO BID [facility] Last Admin: 01/07/22 20:50 Dose: 100 mg Documented by: Fenofibrate (Fenofibrate 43 Mg Capsule) 43 mg PO [facility] Last Admin: 01/07/22 20:51 Dose: 43 mg Documented by: Gabapentin (Gabapentin 100 Mg Capsule) 100 mg PO TID [facility] Last Admin: 01/07/22 20:50 Dose: 100 mg Documented by: Lactulose (Lactulose 20 Gm/30 Ml Oral.Kym) 10 gm PO DAILYP PRN PRN Reason: Constipation Latanoprost (Latanoprost Ophth Drops 2.5ml Bottle) 1 gtt OU BID [facility] Last Admin: 01/07/22 20:42 Dose: Not Given Documented by: Ondansetron HCl (Ondansetron 4 Mg/2 Ml Vial) 4 mg IV Q4HP PRN; Protocol PRN Reason: Nausea And Vomiting Last Admin: 01/03/22 07:22 Dose: 4 mg Documented by: Polyethylene Glycol (Polyethylene Glycol 3350 17 Gm Packet) 17 gm PO DAILYP PRN PRN Reason: Constipation Last Admin: 01/03/22 18:44 Dose: 17 gm Documented by: Senna (Sennosides 1 Tablet) 2 tab PO HSP PRN PRN Reason: Constipation Sodium Chloride (0.9 % Sodium Chloride 10 Ml Syringe) 10 ml IV Q8 [facility] Last Admin: 01/08/22 05:34 Dose: 10 ml Documented by: Timolol Maleate (Timolol 0.25% Ophth Drops Bottle 5ml) 1 gtt OU BID [facility] Last Admin: 01/07/22 20:52 Dose: 1 gtt Documented by: ABG Interpretation ABG results: 01/01/22 01/03/22 19:02 10:08 ABG Methemoglobin 0.3 L 0.3 L VBG pH 7.45 H 7.40 VBG pCO2 46.4 56.1 H VBG pO2 92.1 H 156.2 H VBG HCO3 31.2 H 33.8 H VBG Total CO2 32.6 H 35.5 H VBG O2 Saturation 87.4 H 92.6 H VBG Base Excess 6 H 7 H A/P Narrative A/P Narrative: A: #Acute on chronic hypoxic/hypercapnic respiratory failure: 2/2 PE + chronic component -on vapotherm down to 40lpm/40%, cpap at night #Pulmonary embolism w/mild RV stain: hemodynamically stable #Probable obesity hypoventilation syndrome: #Suspected HALIMA: #Obesity: BMI 40 #JUANA: Resolved #Right 2.5 cm breast mass -Not new according to the patient #Essential hypertension / Hyperlipidemia: #Recurrent UTIs on suppressive cephalexin #h/o vitamin B12 deficiency/macrocytosis: #Hematoma/mass adjacent to right atrium and right ventricle Plan: -eliquis -Oxygen supplementation, currently requiring HHFNC -nocturnal cpap -PT consult -CM for placement when ready. -Outpatient mammogram and breast ultrasound if within the patient's goals of care. -f/u echo outpt regarding pericardial mass, per read by rads could be adipose tissue,hematoma,etc.. -f/u with pulmonology for sleep study -ppx: eliquis CODE STATUS: DNR/DNI Time Spent With Patient Time: Total time spent is greater than 50% in coordination of care (as documented) at patient's floor/unit and/or counseling patient:
[2022-01-08] MEDS: DOCUSATE SODIUM 100 MG CAPSULE PO SCH ×2 (09:16→20:03)
[2022-01-08] MEDS: APIXABAN 5 MG TABLET PO SCH ×2 (09:16→20:03)
[2022-01-08] MEDS: CALCIUM W/VIT D3 500 MG TABLET PO SCH (09:16)
[2022-01-08] MEDS: CYANOCOBALAMIN 1,000 MCG/ML VIAL IM SCH (09:16)
[2022-01-08] MEDS: GABAPENTIN 100 MG CAPSULE PO SCH ×3 (09:16→20:03)
[2022-01-08] MEDS: LATANOPROST OPHTH DROPS 2.5ML BOTTLE OU SCH ×2 (10:36→20:05)
[2022-01-08] MEDS: TIMOLOL 0.25% OPHTH DROPS BOTTLE 5ML OU SCH ×2 (10:37→20:05)
--- NOTE | 2022-01-08 12:30 | Internal Med Progress Note ---
SUBJECTIVE Subjective Patient information: Note initiated : 01/09/22 at 12:29 pm Service Date, if different from initiated Date: [] Patient: Amarilis Medellin 81 y/o F admitted on 01/01/22 for SOB, hypoxia. Chief Complaint: [] Interval history: Ms. Miranda Merrill is a 81 year old female with a history of hypertension, hyperlipidemia, recurrent UTIs on suppressive cephalexin, macular degeneration, chronic hypoxia on home oxygen 2 L/min recently diagnosed heart failure with preserved ejection fraction who presented to the emergency department for a chief complaint of shortness of breath and worsening hypoxia. She says that she was diagnosed with congestive heart failure in the last couple months and started on oral Lasix. Since that time she has been struggling with shortness of breath, especially while lying flat. In the ED, the patient was found to be severely hypoxic. ABG was done and in addition to hypoxemia showed a pH of 7.28 and PCO2 of 77 consistent with respiratory acidosis. ABG bicarbonate level was 36.2. This suggests a chronic respiratory acidosis. The patient does not have a known history of obstructive lung disease. Chest x-ray was consistent with pulmonary vascular congestion. Routine lab work with CBC, CMP, cardiac enzymes was most impressive for a NT proBNP of almost 8000. Troponin was normal. EKG did not show any acute ischemic changes. Creatinine was 1.3, up from the patient's baseline of about 0.8. The patient was started on BiPAP with supplemental oxygen and given a dose of Lasix 40 mg IV. Hospital medicine was consulted for admission. Review of the recent transthoracic echocardiogram re veals an estimated LVEF of 70%, a moderately dilated right ventricle with mildly reduced right ventricular systolic function. Pulmonary artery pressure estimation was not possible. Additionally, there was comment of a hematoma/mass seen in the pericardial space adjacent to the right atrium and right ventricle as well as a small to moderate pericardial effusion. When I evaluated the patient in the ED, she was on BiPAP and appeared to be breathing comfortably. We discussed the plan of care and her goals of care. The patient wishes to be DNR/DNI. 01/02 Renal function improved, continues on BiPAP, started lasix 40 mg IV BID. Goals of care discussion with son at bedside, goal is to get the patient stable enough to go home and consider hospice at home. D-dimer mildly elevated, discussed CTA chest with the patient, she declined further evaluation for pulmonary embolism. ECHO report pending. Vitamin B12 level 246, started vitamin B12 IM supplement. 01/03 The patient continues on high flow nasal canula, had low blood pressure this morning and tachycardia. Reviewed the possibility of a pulmonary embolism again, the patient agreed to a CTA chest today. The CTA chest was positive for a p ulmonary embolism, also noted was a 2.5 cm cm right breast mass. Therapeutic Lovenox was started for anticoagulation. Lasix was discontinued. 01/04 Transition to [facility], the patient continues to required high FiO2. Blood pressure low normal, TTE report showed borderline reduced right ventricular systolic function. Discussed the option of thrombolytic therapy, the patient wants to think about it but leaning towards no further intervention and comfort cares. She will discuss it further with her family. On therapeutic Lovenox twice daily. 01/05 Still requiring high fraction of inspired oxygen. Patient has occasional cough but denies shortness of breath at rest while on breathing device. Family meeting today. 01/06 Patient feeling little better today. Sitting up in chair having breakfast with family. Gradually weaning down FiO2. Family discussion yesterday about her condition and gradual improvement. 01/07 Continues to feel a bit better. No shortness of breath at rest occasional cough. FiO2 requirement gradually improving. 01/08 Patient continues to make slow but gradual improvement. No overnight event or new complaints. On 40% FiO2. 01/09 Physical exam Head: Atraumatic, normal inspection. Eyes: normal appearance, no scleral icterus. Neck: full ROM Respiratory: no respiratory distress. Cardiovascular: normal rate and rhythm, S1, S2. GI/Abdominal: soft, nontender, no guarding. Extremities: full range of motion, nontender. Neurological: CN II-XII intact, intact motor, intact sensation. Psychiatric: normal mood. Skin: warm, normal color Constitutional Vitals: Vital Signs Temp Pulse Resp BP Pulse Ox 97.2 F 80 19 126/64 97 01/08/22 10:00 01/08/22 11:21 01/08/22 11:21 01/08/22 11:00 01/08/22 11:21 Period Temp Pulse Resp BP Sys/Camara Pulse Ox Last 24 Hr 97.2 F-98.8 F 78-95 13-35 98-142/59-107 85-98 Intake and Output 01/07/22 01/08/22 01/08/22 21:59 05:59 13:59 Intake Total 600 100 Output Total 675 175 375 Balance -75 -75 -375 Weight 113.455 kg Intake & Output: Intake & Output 01/07/22 01/08/22 01/08/22 21:59 05:59 13:59 Intake Total 600 100 Output Total 675 175 375 Balance -75 -75 -375 Weight 113.455 kg Intake: Oral 600 100 Output: Void Amount 675 175 375 Other: Meal Dinner Percent of Meal Consumed 100% Urine Appearance Clear Clear Urine Color Dark Yellow Bright Yellow Urine Odor Normal Normal OBJ DATA Labs CBC & Chem 7: 01/04/22 05:15 01/06/22 05:18 Labs: Abnormal Lab Results 01/06/22 05:18 Carbon Dioxide 33 H BUN 27 H Alkaline Phosphatase 32 L Total Protein 5.7 L Albumin 3.1 L Meds: Medications Acetaminophen (Acetaminophen 325 Mg Tablet) 650 mg PO Q6HP PRN; Protocol PRN Reason: Per Pain Protocol/Fever > 101 Last Admin: 01/08/22 03:18 Dose: 650 mg Documented by: Hydrocodone Bitart/Acetaminophen (Hydrocodone/Apap 5/325mg Tablet) 1 tab PO Q4HP PRN; Protocol PRN Reason: Per Pain Protocol Last Admin: 01/06/22 13:38 Dose: 1 tab Documented by: Albuterol Sulfate (Albuterol Sulfate 2.5 Mg/3 Ml Nebulizer) 2.5 mg NEB Q2HP PRN PRN Reason: Shortness Of Breath Last Admin: 01/08/22 05:24 Dose: 2.5 mg Documented by: Albuterol/Ipratropium (Ipratropium/Albuterol 3 Ml Ampul.Neb) 3 ml NEB Q6HRT [facility] Last Admin: 01/08/22 07:40 Dose: 3 ml Documented by: Apixaban (Apixaban 5 Mg Tablet) 10 mg PO BID [facility] Last Admin: 01/08/22 09:16 Dose: 10 mg Documented by: Atorvastatin Calcium (Atorvastatin 40 Mg Tablet) 40 mg PO HS [facility] Last Admin: 01/07/22 20:51 Dose: 40 mg Documented by: Calcium/Vitamin D (Calcium W/Vit D3 500 Mg Tablet) 500 mg PO DAILY [facility] Last Admin: 01/08/22 09:16 Dose: 500 mg Documented by: Cephalexin HCl (Cephalexin 250 Mg Capsule) 250 mg PO [facility]; Protocol Last Admin: 01/07/22 20:51 Dose: 250 mg Documented by: Cyanocobalamin (Cyanocobalamin 1,000 Mcg/Ml Vial) 1,000 mcg IM DAILY [facility] Stop: 01/09/22 16:09 Last Admin: 01/08/22 09:16 Dose: 1,000 mcg Documented by: Docusate Sodium (Docusate Sodium 100 Mg Capsule) 100 mg PO BID [facility] Last Admin: 01/08/22 09:16 Dose: 100 mg Documented by: Fenofibrate (Fenofibrate 43 Mg Capsule) 43 mg PO [facility] Last Admin: 01/07/22 20:51 Dose: 43 mg Documented by: Gabapentin (Gabapentin 100 Mg Capsule) 100 mg PO TID [facility] Last Admin: 01/08/22 09:16 Dose: 100 mg Documented by: Lactulose (Lactulose 20 Gm/30 Ml Oral.Kym) 10 gm PO DAILYP PRN PRN Reason: Constipation Latanoprost (Latanoprost Ophth Drops 2.5ml Bottle) 1 gtt OU BID [facility] Last Admin: 01/08/22 10:36 Dose: Not Given Documented by: Ondansetron HCl (Ondansetron 4 Mg/2 Ml Vial) 4 mg IV Q4HP PRN; Protocol PRN Reason: Nausea And Vomiting Last Admin: 01/03/22 07:22 Dose: 4 mg Documented by: Polyethylene Glycol (Polyethylene Glycol 3350 17 Gm Packet) 17 gm PO DAILYP PRN PRN Reason: Constipation Last Admin: 01/03/22 18:44 Dose: 17 gm Documented by: Senna (Sennosides 1 Tablet) 2 tab PO HSP PRN PRN Reason: Constipation Sodium Chloride (0.9 % Sodium Chloride 10 Ml Syringe) 10 ml IV Q8 [facility] Last Admin: 01/08/22 05:34 Dose: 10 ml Documented by: Timolol Maleate (Timolol 0.25% Ophth Drops Bottle 5ml) 1 gtt OU BID [facility] Last Admin: 01/08/22 10:37 Dose: 1 gtt Documented by: ABG Interpretation ABG results: 01/01/22 01/03/22 19:02 10:08 ABG Methemoglobin 0.3 L 0.3 L VBG pH 7.45 H 7.40 VBG pCO2 46.4 56.1 H VBG pO2 92.1 H 156.2 H VBG HCO3 31.2 H 33.8 H VBG Total CO2 32.6 H 35.5 H VBG O2 Saturation 87.4 H 92.6 H VBG Base Excess 6 H 7 H A/P Narrative A/P Narrative: A: #Acute on chronic hypoxic/hypercapnic respiratory failure: 2/2 PE + chronic component -on vapotherm down to 40lpm/40%, cpap at night #Pulmonary embolism w/mild RV stain: hemodynamically stable #Probable obesity hypoventilation syndrome: #Suspected HALIMA: #Obesity: BMI 40 #JUANA: Resolved #Right 2.5 cm breast mass -Not new according to the patient #Essential hypertension / Hyperlipidemia: #Recurrent UTIs on suppressive cephalexin #h/o vitamin B12 deficiency/macrocytosis: #Hematoma/mass adjacent to right atrium and right ventricle Plan: -eliquis -Oxygen supplementation, currently requiring HHFNC -nocturnal cpap -PT consult -CM for placement when ready. -Outpatient mammogram and breast ultrasound if within the patient's goals of ca re. -f/u echo outpt regarding pericardial mass, per read by rads could be adipose tissue,hematoma,etc.. -f/u with pulmonology for sleep study -ppx: eliquis CODE STATUS: DNR/DNI Time Spent With Patient Time: Total time spent is greater than 50% in coordination of care (as documented) at patient's floor/unit and/or counseling patient:
[2022-01-08] MEDS: CEPHALEXIN 250 MG CAPSULE PO SCH (20:02)
[2022-01-08] MEDS: FENOFIBRATE 43 MG CAPSULE PO SCH (20:03)
[2022-01-08] MEDS: ATORVASTATIN 40 MG TABLET PO SCH (20:03)
[2022-01-09] MEDS: IPRATROPIUM/ALBUTEROL 3 ML AMPUL.NEB NEB SCH ×3 (00:38→12:59)
[2022-01-09] MEDS: 0.9 % SODIUM CHLORIDE 10 ML SYRINGE IV SCH (05:20)
[2022-01-09] MEDS: APIXABAN 5 MG TABLET PO SCH (08:40)
[2022-01-09] MEDS: DOCUSATE SODIUM 100 MG CAPSULE PO SCH (08:40)
[2022-01-09] MEDS: CALCIUM W/VIT D3 500 MG TABLET PO SCH (08:40)
[2022-01-09] MEDS: GABAPENTIN 100 MG CAPSULE PO SCH (08:40)
[2022-01-09] MEDS: CYANOCOBALAMIN 1,000 MCG/ML VIAL IM SCH (08:40)
[2022-01-09] MEDS: ACETAMINOPHEN 325 MG TABLET PO PRN (08:41)
[2022-01-09] MEDS: POLYETHYLENE GLYCOL 3350 17 GM PACKET PO PRN (08:43)
[2022-01-09] MEDS: LATANOPROST OPHTH DROPS 2.5ML BOTTLE OU SCH (10:09)
[2022-01-09] MEDS: TIMOLOL 0.25% OPHTH DROPS BOTTLE 5ML OU SCH (10:09)
[2022-01-09] MEDS ORDERED: TIMOLOL 0.25% OPHTH DROPS BOTTLE 5ML OU SCH (10:15)
--- NOTE | 2022-01-09 11:50 | Discharge Summary ---
Discharge Provider Provider Patient information: Note initiated : 01/09/22 at 11:45 am Service Date, if different from initiated Date: [] Patient: Amarliis Medellin 81 y/o F admitted on 01/01/22 for SOB, hypoxia. Chief Complaint: [] Date of admission: 01/01/22 18:45 Discharge date: 01/09/22 Primary care physician: Moni Faulkner DO Consults: 01/01/22 Consult to Physician [CONS] Stat Comment: Consulting Provider: Harjeet Keys Reason For Exam: Physician to Consult Discharge Meds Discharge Medications Home Medications omega-3 fatty acids 1,000 mg capsule 1,000 mg PO QDAY cap 05/08/15 [History Confirmed 01/01/22 Last Taken Unknown] timolol 0.25 % eye drops 1 drp OPHTHALMIC QAM ml 05/08/15 [History Confirmed 01/09/22 Last Taken Unknown] calcium carbonate 600 mg-vitamin D3 10 mcg (400 unit) capsule 1 cap PO DAILY cap 10/09/15 [History Confirmed 01/01/22 Last Taken Unknown] latanoprost 0.005 % eye drops 1 drp OPHTHALMIC QHS 12/28/16 [History Confirmed 01/09/22 Last Taken Unknown] gabapentin 100 mg capsule 100 mg PO TID #90 cap 06/09/21 [Rx Confirmed 01/01/22 Last Taken Unknown] Portable Oxygen #1 ea 11/20/21 [Rx Confirmed 01/01/22 Last Taken Unknown] furosemide 20 mg tablet 20 mg PO QAM #30 tab 12/12/21 [Rx Confirmed 01/01/22 Last Taken Unknown] atorvastatin 40 mg tablet 40 mg PO HS 01/01/22 [History Confirmed 01/01/22 Last Taken Unknown] cephalexin 250 mg capsule 250 mg PO HS 01/01/22 [History Confirmed 01/01/22 Last Taken Unknown] fenofibrate 54 mg tablet 54 mg PO HS 01/01/22 [History Confirmed 01/01/22 Last Taken Unknown] apixaban 5 mg tablet (Eliquis) 5 mg PO BID 180 Days #60 tab 01/09/22 [Rx Last Taken Unknown] apixaban 5 mg tablet (Eliquis) 10 mg PO BID 3 Days #12 tab 01/09/22 [Rx Last Taken Unknown] ipratropium 0.5 mg-albuterol 3 mg (2.5 mg base)/3 mL nebulization soln 3 ml INHALATION Q6HRT PRN #90 ml 01/09/22 [Rx Last Taken Unknown] COURSE Hospital Course Hospital course: Ms. Miranda Merrill is a 81 year old female with a history of hypertension, hyperlipidemia, recurrent UTIs on suppressive cephalexin, macular degeneration, chronic hypoxia on home oxygen 2 L/min recently diagnosed heart failure with preserved ejection fraction who presented to the emergency department for a chief complaint of shortness of breath and worsening hypoxia. She says that she was diagnosed with congestive heart failure in the last couple months and started on oral Lasix. Since that time she has been struggling with shortness of breath, especially while lying flat. In the ED, the patient was found to be severely hypoxic. ABG was done and in addition to hypoxemia showed a pH of 7.28 and PCO2 of 77 consistent with respiratory acidosis. ABG bicarbonate level was 36.2. This suggests a chronic respiratory acidosis. The patient does not have a known history of obstructive lung disease. Chest x-ray was consistent with pulmonary vascular congestion. Routine lab work with CBC, CMP, cardiac enzymes was most impressive for a NT proBNP of almost 8000. Troponin was normal. EKG did not show any acute ischemic changes. Creatinine was 1.3, up from the patient's baseline of about 0.8. The patient was started on BiPAP with supplemental oxygen and given a dose of Lasix 40 mg IV. Hospital medicine was consulted for admission. Review of the recent transthoracic echocardiogram reveals an estimated LVEF of 70%, a moderately dilated right ventricle with mildly reduced right ventricular systolic function. Pulmonary artery pressure estimation was not possible. Additionally, there was comment of a hematoma/mass seen in the pericardial space adjacent to the right atrium and right ventricle as well as a small to moderate pericardial effusion. When I evaluated the patient in the ED, she was on BiPAP and appeared to be breathing comfortably. We discussed the plan of care and her goals of care. The patient wishes to be DNR/DNI. 01/02 Renal function improved, continues on BiPAP, started lasix 40 mg IV BID. Goals of care discussion with son at bedside, goal is to get the patient stable enough to go home and consider hospice at home. D-dimer mildly elevated, discussed CTA chest with the patient, she declined further evaluation for pulmonary embolism. ECHO report pending. Vitamin B12 level 246, started vitamin B12 IM supplement. 01/03 The patient continues on high flow nasal canula, had low blood pressure this morning and tachycardia. Reviewed the possibility of a pulmonary embolism again, the patient agreed to a CTA chest today. The CTA chest was positive for a pulmonary embolism, also noted was a 2.5 cm cm right breast mass. Therapeutic Lovenox was started for anticoagulation. Lasix was discontinued. 01/04 Transition to [facility], the patient continues to required high FiO2. Blood pressure low normal, TTE report showed borderline reduced right ventricular systolic function. Discussed the option of thrombolytic therapy, the patient wants to think about it but leaning towards no further intervention and comfort cares. She will discuss it further with her family. On therapeutic Lovenox twice daily. 01/05 Still requiring high fraction of inspired oxygen. Patient has occasional cough but denies shortness of breath at rest while on breathing device. Family meeting today. 01/06 Patient feeling little better today. Sitting up in chair having breakfast with family. Gradually weaning down FiO2. Family discussion yesterday about her condition and gradual improvement. 01/07 Continues to feel a bit better. No shortness of breath at rest occasional cough. FiO2 requirement gradually improving. 01/08 Patient continues to make slow but gradual improvement. No overnight event or new complaints. On 40% FiO2. 01/09 Improved oxygen requirement, down to 2.5 L/min nasal canula oxygen which is near the patient's baseline. Discharged to SNF for rehab on Eliquis BID, will complete 3 more days of 10 mg BID before transitioning to 5 mg BID. Anticipate 6 months of treatment unless the patient decides to transition to hospice. Follow up with PCP after rehab. Physical exam Head: Atraumatic, normal inspection. Eyes: normal appearance, no scleral icterus. Neck: full ROM Respiratory: nasal canula oxygen, no respiratory distress. Cardiovascular: normal rate and rhythm, S1, S2. GI/Abdominal: soft, nontender, no guarding. Extremities: full range of motion, nontender. Neurological: CN II-XII intact, intact motor, intact sensation. Psychiatric: normal mood. Skin: warm, normal color Discharge diagnosis: Pulmonary emboli Time Spent with Patient Time attestation: Total time spent providing and/or coordinating discharge services: EXAM Constitutional Vitals: Temp Pulse Resp BP Pulse Ox 97.1 F 73 18 124/75 95 02/18/22 08:01 01/09/22 10:32 01/09/22 08:01 01/09/22 10:32 01/09/22 10:32 Discharge Plan Patient/Caregiver Discharge Instructions Activity: as per physical therapy Diet: Regular Diet Prescriptions: New ipratropium-albuterol 0.5 mg-3 mg(2.5 mg base)/3 mL Solution For Nebulization 3 ml inhalation Q6HRT PRN (Reason: shortness of breath or wheezing) Qty: 90 3RF Eliquis 5 mg tablet 10 mg PO BID 3 Days Qty: 12 0RF Rx Instructions: Take Eliquis 10 mg BID for 3 more days to complete 7 days then start taking Eliquis 5 mg BID. Eliquis 5 mg tablet 5 mg PO BID 180 Days Qty: 60 6RF Rx Instructions: Take Eliquis 10 mg BID for 3 more days to complete 7 days then start taking Eliquis 5 mg BID. Continued gabapentin 100 mg capsule 100 mg PO TID Qty: 90 6RF furosemide 20 mg tablet 20 mg PO QAM Qty: 30 3RF omega-3 fatty acids 1,000 mg capsule 1,000 mg PO QDAY 0RF Rx Instructions: administer with food timolol 0.25 % drops 1 drp OPHTHALMIC QAM 0RF latanoprost 0.005 % drops 1 drp OPHTHALMIC QHS 0RF calcium carbonate-vitamin D3 600 mg(1,500mg) -400 unit capsule 1 cap PO DAILY 0RF (DME) Portable Oxygen See Rx Instructions .Route .MEDSUPPLY Qty: 1 0RF Rx Instructions: As directed atorvastatin 40 mg tablet 40 mg PO HS 0RF cephalexin 250 mg capsule 250 mg PO HS 0RF Discontinued ibuprofen 200 mg capsule 200 mg PO Q6H 0RF amlodipine [Norvasc] 10 mg tablet 10 mg PO HS 0RF telmisartan 40 mg tablet 40 mg PO HS 0RF No Action fenofibrate 54 mg tablet 54 mg PO HS 0RF Other Ambulatory Orders: OT Discharge Order (Routine) Location: None Selected Ordered By: Harjeet Keys Physical Therapy at Discharge - General (Routine) Location: None Selected Ordered By: Harjeet Keys Follow Up Plan Follow up with: Moni Faulkner DO [Primary Care Provider] - Patient Disposition: Xfer SNF Rehab Potential: Fair I certify that the patient requires SNF services: Yes Overall status at discharge: patient is progressing back to baseline Discharge Orders: Discharge Order (Routine); Ordered 01/09/22 Ordered By: Harjeet Keys
[2022-01-09] MEDS ORDERED: LATANOPROST OPHTH DROPS 2.5ML BOTTLE OU SCH (21:00)
[2022-01-11] MEDS ORDERED: APIXABAN 5 MG TABLET PO SCH (09:00)
== END 2022-01-09 13:15 | DRG 175 ==
LOC: ED 11:19 → ICU 18:45
PROVIDERS: ADMIT Internal Medicine; ATTEND Internal Medicine